=== PATIENT | male | born 1945 | race Caucasian/White ===

== ENCOUNTER 2019-10-22 09:54 | Outpatient (CLI) | payer OTHER, SELFPAY ==
--- NOTE | ~2019-10-22 | XR_ITS ---
EXAMINATION: XR chest 2V EXAM DATE: 10/22/2019 10:14 INDICATION: Cough. TECHNIQUE: Frontal and lateral projections of the chest obtained and reviewed. There is no prior sary dy for comparison. FINDINGS: Left upper lobe granuloma. The lungs are otherwise clear. There are no pleural effusions. The cardiomediastinal silhouette is within normal limits. There is no pneumothorax suspected. Mil d lower thoracic spondylosis. There are cholecystectomy clips. IMPRESSION: No acute cardiopulmonary findings. Reviewed, dictated and finalized at location A.
== END 2019-10-22 09:55 | disposition home or self-care (01) ==
PROVIDERS: PCP Internal Medicine; Visit Provider Internal Medicine
DX: R05 Cough (principal)
CPT/HCPCS: 71046

== ENCOUNTER 2020-01-27 07:03 | Outpatient (CLI) | payer OTHER, SELFPAY ==
--- NOTE | ~2020-01-27 | MR_ITS ---
EXAMINATION: MR shoulder RT wo con DATE: 01/27/2020 08:32 INDICATION: Right shoulder pain TECHNIQUE: Magnetic resonance imaging (MRI) of the right shoulder was performed without intravenous c ontrast. Sequences included axial PD-weighted FS FSE, coronal oblique PD-weighted FS FSE, coronal obl ique T2-weighted FS FSE, sagittal PD-weighted FS FSE, and sagittal T1-weighted SE. COMPARISON: Right shoulder radiographs dated 01/15/2020 FINDINGS: Coracoacromial arch: The acromion undersurface is curved in morphology (type II). The coracoacromial ligament is normal. M ild acromioclavicular osteoarthritis. Rotator cuff: Moderate tendinopathy of the subscapularis, supraspinatus and infraspinatus tendons. There is bursal sided fraying and small poorly demarcated shallow bursal sided tear along the superior facet footplat e of the supraspinatus tendon. No discrete articular sided tear. The teres minor tendon is normal. No rmal rotator cuff muscle bulk and signal. Biceps tendon, glenoid labrum and glenohumeral cartilage: Long head of the biceps tendon is normal. Glenoid labrum is normal. Cartilage loss with irregular cho ndral surface and with underlying subarticular cystic change at the posterior glenoid. There is a sma ll tear at the base of the 10:30 to 11:00 position of the posterior superior glenoid labrum. Fluid: Physiologic amount of fluid in the glenohumeral joint and biceps tendon sheath. No loose osteochondra l bodies. Moderate amount of fluid in the subacromial/subdeltoid bursa consistent with mild to modera te bursitis. Bones: Bone alignment is normal. No fracture or pathologic marrow replacing process. Mild hypertrophic and c ystic changes along the rotator cuff footplate of the greater tuberosity likely related to chronic ro tator cuff disease. IMPRESSION: 1. Moderate subscapularis, supraspinatus and infraspinatus tendinopathy with bursal sided fraying and poorly defined small shallow bursal sided tear at the greater tuberosity footplate of the supraspina tus tendon. 2. Mild glenohumeral osteoarthritis with small tear at the posterior superior glenoid and small regio n of high-grade chondromalacia in the posterior glenoid. 3. Mild to moderate subacromial/subdeltoid bursitis. Reviewed, dictated and finalized at location A. IMPRESSION: 1. Moderate subscapularis, supraspinatus and infraspinatus tendinopathy with bu rsal sided fraying and poorly defined small shallow bursal sided tear at the gr eater tuberosity footplate of the supraspinatus tendon. 2. Mild glenohumeral osteoarthritis with small tear at the posterior superior g lenoid and small region of high-grade chondromalacia in the posterior glenoid. 3. Mild to moderate subacromial/subdeltoid bursitis.
== END 2020-01-27 07:04 | disposition home or self-care (01) ==
PROVIDERS: PCP Internal Medicine; Visit Provider Orthopaedic Surgery
DX: M75.101 Unspecified rotator cuff tear or rupture of right shoulder, not specified as traumatic (principal); M19.011 Primary osteoarthritis, right shoulder; M94.211 Chondromalacia, right shoulder; M75.81 Other shoulder lesions, right shoulder; M75.51 Bursitis of right shoulder
CPT/HCPCS: 73221

== ENCOUNTER 2020-07-17 06:46 | Outpatient (NON) | payer OTHER, SELFPAY ==
[2020-07-18 00:44] LABS: SARS-CoV-2 RNA PCR Negative
== END 2020-07-17 06:47 ==
LOC: ANHCOVIDDT 06:57
PROVIDERS: PCP Internal Medicine; Visit Provider Internal Medicine
DX: R68.89 Other general symptoms and signs (principal); Z20.828 Contact with and (suspected) exposure to other viral communicable diseases
CPT/HCPCS: 87635; C9803; U0003

== ENCOUNTER 2020-12-11 11:58 | Emergency (ER) | payer OTHER, SELFPAY ==
[2020-12-11 12:02] VITALS: BP 133/75; PULSE 67; RESP 20; TEMP 36.9; O2SAT 97
--- NOTE | 2020-12-11 12:30 | ED.EYEPROB ---
HPI - Eye Problem General Chief complaint: Eye Problems Stated complaint: EYE REDNESS Source: patient Mode of arrival: ambulatory Limitations: no limitations History of Present Illness HPI Narrative: 75 year old male presents to urgent care with complaints of redness and tearing to his left eye since yesterday. Patient reports he also has noted mild matting to his left eye as well as a bump to his upper eyelid. Patient does wear glasses. Patient denies purulent drainage, visual disturbances, fever, bodies, chills, nausea, vomiting or diarrhea. MD chief complaint: eye redness Onset (ago): day(s) (1) Eye Symptoms: redness Mechanism: none Associated symptoms: none Related Data Home Medications Medication Instructions Recorded Confirmed hydrocodone 5 mg-acetaminophen 325 1 tablet PO Q6H PRN 08/29/19 12/11/20 mg tablet omeprazole 20 mg capsule,delayed 20 mg PO BID 08/29/19 12/11/20 release sertraline 100 mg tablet 100 mg PO DAILY 08/29/19 12/11/20 buspirone 10 mg tablet 10 mg PO TID 10/14/19 12/11/20 cyanocobalamin (vitamin B-12) 1,000 mcg SUB-Q MONTHLY ml 05/03/20 12/11/20 1,000 mcg/mL injection solution trazodone 100 mg PO DAILY 12/11/20 12/11/20 Allergies Allergy/AdvReac Type Severity Reaction Status Date / Time No Known Allergies Allergy Verified 12/11/20 12:25 Review of Systems Constitutional: Constitutional: Denies chills, Denies fatigue, Denies fever(s) and Denies weakness Eyes: Comments: left eye redness and tearing; eliud of swelling to left upper eyelid ENT: Denies dysphagia, Denies dizziness, Denies epistaxis and Denies sore throat Respiratory: Respiratory: Denies cough, Denies dyspnea and Denies wheezing Gastrointestinal: Gastrointestinal: Denies abdominal pain, Denies diarrhea, Denies nausea and Denies vomiting Neurologic: Denies dizziness PMFSH Surgical History Surgical History History of total right knee replacement Presence of left artificial knee joint Family History Family History Mother Family history of rheumatoid arthritis Sibling Family history of malignant neoplasm Other Family history of arthritis Social History Social History Smoking packs per day: 1 Smoking cigarettes per day: 20.0 Years smoked: 20 Smoking pack-years: 20.00 Smoking status: Former smoker Tobacco type: cigarettes Smoking end date: 08/06/89 Alcohol intake: never Spiritual care concerns: No Comments At time of signature, I agree with nursing past medical, surgical, social and family history. There is no relevant family history pertinent to the presenting complaint. Exam Const: General: no acute distress and alert Nutritional Appearance: well nourished Orientation/consciousness: patient oriented x3 HENMT: Head: normal to inspection Throat: posterior oropharynx normal and uvula midline Eyes: EOM: EOMs intact bilaterally Direct Ophthalmoscopy: no photophobia Other: Mild injection noted to left conjunctiva. There is a moderate sized stye noted to left upper eyelid. There is no purulent drainage or matting noted Neck: Neck: normal visual inspection Resp: Effort & Inspection: normal respiratory effort, not labored and not tachypneic Auscultation: clear to auscultation bilaterally Cardio: Rate: regular rate, not bradycardic and not tachycardic Rhythm: regular rhythm Heart sounds: no murmurs Skin: General skin exam: normal color Rashes: no rashes Wounds: no wounds Neuro: General: patient oriented x3 and moves all extremities Speech: normal speech Psych: Appearance: grossly normal Mental Status: mental status grossly normal Affect: normal affect Attitude: cooperative Thought content: Yes Normal thought content present Course Vital Signs Vital signs: Vital Signs Temperature 36.9 C 12/11/20 12:02
== END 2020-12-11 12:47 | disposition home or self-care (01) ==
PROVIDERS: Emergency Provider Nurse Practitioner Family; PCP Internal Medicine
DX: H00.014 Hordeolum externum left upper eyelid (principal); Z87.891 Personal history of nicotine dependence; Z96.653 Presence of artificial knee joint, bilateral; E03.9 Hypothyroidism, unspecified; Z98.41 Cataract extraction status, right eye; G47.30 Sleep apnea, unspecified; Z85.46 Personal history of malignant neoplasm of prostate; Z90.79 Acquired absence of other genital organ(s)
CPT/HCPCS: 99213; G0463

== ENCOUNTER 2021-04-12 11:37 | Outpatient (CLI) | payer OTHER, SELFPAY ==
--- NOTE | ~2021-04-12 | XR_ITS ---
EXAMINATION: XR hand RT min 3V INDICATION: Right hand pain TECHNIQUE: Four views of the right hand are obtained. COMPARISON: None available FINDINGS: There is no fracture. There is moderate osteoarthritis of the wrist and mild osteoarthritis of multiple interphalangeal joints and metacarpophalangeal joints. The soft tissues are unremarkable . IMPRESSION: 1. Polyarticular osteoarthritis without acute osseous abnormality. Reviewed, dictated and finalized at location B.
== END 2021-04-12 11:38 | disposition home or self-care (01) ==
PROVIDERS: PCP Internal Medicine; Visit Provider Internal Medicine
DX: S69.90XA Unspecified injury of unspecified wrist, hand and finger(s), initial encounter (principal); M19.041 Primary osteoarthritis, right hand
CPT/HCPCS: 73130

== ENCOUNTER 2021-10-26 13:00 | Emergency (ER) | payer MEDICARE, SELFPAY ==
[2021-10-26] VITALS (11 sets, daily range): BP systolic 139–144; BP diastolic 77–85; PULSE 58–65; RESP 15–23; TEMP 36.8; O2SAT 95–98
--- NOTE | ~2021-10-26 | XR_ITS ---
EXAMINATION: XR chest 2V DATE: 10/26/2021 13:15 INDICATION: Irregular heart rate TECHNIQUE: AP and lateral views of the chest are obtained. COMPARISON: 10/22/2019 FINDINGS: The lungs are free of acute opacities. There is no pleural effusion or pneumothorax. The ca rdiomediastinal silhouette is normal. There is mild thoracic spondylosis. IMPRESSION: 1. No acute cardiopulmonary abnormality. Reviewed, dictated and finalized at location B.
--- NOTE | 2021-10-26 13:04 | ECG_ITS ---
Measurements Intervals [place] Rate: 69 P: -10 LA: 153 QRS: -7 QRSD: 97 T: 40 QT: 406 QTc: 438 Interpretive Statements SINUS RHYTHM WITH FREQUENT VENTRICULAR PREMATURE COMPLEXES IN A BIGEMINAL PATTERN NONSPECIFIC T-WAVE ABNORMALITY ABNORMAL ECG COMPARED TO ECG 10/28/2018 13:21:15 T-WAVE ABNORMALITY NOW PRESENT Electronically Signed On 10-26-2021 14:23:03 CDT by Tj Rick M.D.
--- NOTE | 2021-10-26 13:30 | ED.GENADULT ---
HPI - General Adult General Chief complaint: Arrhythmia/Palpitations Stated complaint: abnormal EKG Time Seen by Provider: 10/26/21 13:13 Source: patient Limitations: no limitations History of Present Illness HPI narrative: Patient is 76 years old white male went to see his [place] family physician today for regular check. 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 Patient changed doctors, went to another family physician who referred him to the emergency room for further evaluation. Again patient was asymptomatic before and asymptomatic on arrival to the emergency room. Patient is telling me that he was told that he have skipped beats. He does not feel it. Again he denies any fever, chills, nausea, vomiting, chest pain, shortness of breath, back pain, abdominal pain or palpitation. Related Data Home Medications Medication Instructions Recorded Confirmed hydrocodone 5 mg-acetaminophen 325 1 tablet PO Q6H PRN 08/29/19 10/13/21 mg tablet omeprazole 20 mg capsule,delayed 20 mg PO BID 08/29/19 10/13/21 release sertraline 100 mg tablet 100 mg PO DAILY 08/29/19 10/13/21 buspirone 10 mg tablet 10 mg PO TID 10/14/19 10/13/21 cyanocobalamin (vitamin B-12) 1,000 mcg SUB-Q MONTHLY ml 05/03/20 10/13/21 1,000 mcg/mL injection solution trazodone 100 mg PO DAILY 12/11/20 10/13/21 Allergies Allergy/AdvReac Type Severity Reaction Status Date / Time No Known Allergies Allergy Verified 10/26/21 13:02 Review of Systems Review of Systems: CONSTITUTIONAL: Denies fever, chills, or sweats. EYES: Denies visual changes, redness, or discharge. ENT: Denies rhinorrhea, congestion, sore throat, or otalgia. CARDIOVASCULAR: Denies chest pain, palpitations, or edema. RESPIRATORY: Denies cough or dyspnea. GASTROINTESTINAL: Denies abdominal pain, nausea, vomiting, or diarrhea. GENITOURINARY: Denies dysuria or hematuria. SKIN: Denies rash or itching. MUSCULOSKELETAL: Denies back pain, joint pain, or myalgia. NEUROLOGIC: Denies headache, numbness, or weakness. PSYCHIATRIC: Denies anxiety or depression. PMFSH Surgical History Surgical History History of total right knee replacement Presence of left artificial knee joint Family History Family History Mother Family history of rheumatoid arthritis Sibling Family history of malignant neoplasm Other Family history of arthritis Social History Social History Smoking packs per day: 1 Smoking cigarettes per day: 20.0 Years smoked: 20 Smoking pack-years: 20.00 Smoking status: Former smoker Tobacco type: cigarettes Smoking end date: 08/06/99 Substance use: never Gender identity (if verbalized by the patient): Male Spiritual care concerns: No Exam Narrative: General appearance: Well-developed, well-nourished Skin: Normal color Head: Normocephalic, nontraumatic Eyes: Clear conjunctiva ENT: Oropharynx normal, ears normal, nose normal Neck: Supple, nontender Chest and respiratory: Airway patent, no respiratory distress, no accessory muscle use Heart: Regular rate/rhythm Abdomen: Soft, nontender, no organomegaly, quiet bowel sounds Vascular: Normal peripheral pulses, normal capillary refill. Musculoskeletal: Normal range of motion, nontender back Neurologic: Alert and oriented ?3, ENROLLMENT COUNSELOR is normal as tested, no gross motor deficit Course Course Emergency Course: Stable Vital Signs Vital signs: Vital Signs Temperature 36.8 C 10/26/21 12:59 [place]
[2021-10-26 13:49] LABS: Basophils Percent Auto 0.6 % (0.2-1.2); Eosinophils Absolute Auto 0.2 K/mm3 (0-0.3); Eosinophils Percent Auto 2.7 % (0-4.4); Hematocrit 48.2 % (42.0-52.0); Hemoglobin 16.6 g/dL (14.0-18.0); Immature Granulocyte Absolute 0.02 K/mm3 (0.00-0.031); Immature Granulocyte Percent A 0.3 % (0-0.5); Lymphocytes Absolute Auto 2.23 K/mm3 (0.9-3.2); Lymphocytes Percent Auto 31.2 % (18.3-44.2); Mean Corpuscular HGB Conc 34.4 g/dl (32-36); Mean Corpuscular Hemoglobin 31.6 pg (26-34); Mean Corpuscular Volume 91.8 fl (80-100); Mean Platelet Volume 10.8 fl (7.4-10.4); Monocytes Absolute Auto 0.7 K/mm3 (0.1-0.6); Monocytes Percent Auto 9.5 % (2.6-8.5); Neutrophils Percent Auto 55.7 % (45.5-73.1); Platelet Count Result 190 k/mm3 (150-375); Red Blood Count 5.25 M/mm3 (4.6-6.20); Red Cell Distribution Width 14.2 % (11.5-14.5); White Blood Count 7.2 K/mm3 (4.5-10.0)
[2021-10-26 14:06] LABS: Alanine Aminotransferase 18 U/L (4-50); Albumin Level 3.7 g/dL (3.5-5.1); Alkaline Phosphatase 64 U/L (38-126); Anion Gap 5 mmol/L (8-16); Aspartate Amino Transferase 30 U/L (17-59); Bilirubin,Total 0.7 mg/dL (0.2-1.3); Blood Urea Nitrogen 18 mg/dL (9-20); Calcium 8.4 mg/dL (8.4-10.2); Carbon Dioxide 24 mmol/L (22-30); Chloride 106 mmol/L (98-107); Estimated CRCL calculation 69 ml/min; Estimated Glomerular Filt Rate > 60; Glucose 95 mg/dL (65-110); Lipase 160 U/L (23-300); Potassium 4.3 mmol/L (3.4-5.0); Sodium 135 mmol/L (137-145)
[2021-10-26 14:08] LABS: INR 1.1; Prothrombin Time 13.3 Seconds (11.1-14.7)
[2021-10-26 14:09] LABS: Partial Thromboplastin Time 26.9 SECONDS (22.3-36.8)
[2021-10-26 14:18] LABS: Troponin I < 0.012 ng/mL (0.000-0.034)
--- NOTE | 2021-10-26 14:23 | ECG_ITS ---
Measurements Intervals [place] Rate: 56 P: -1 MD: 155 QRS: -8 QRSD: 110 T: 39 QT: 433 QTc: 421 Interpretive Statements SINUS BRADYCARDIA WITH OCCASIONAL VENTRICULAR PREMATURE COMPLEXES ABNORMAL ECG COMPARED TO ECG 10/26/2021 13:06:08 SINUS BRADYCARDIA NOW PRESENT Electronically Signed On 10-26-2021 17:56:58 CDT by Tj Rick M.D.
== END 2021-10-26 15:33 | disposition home or self-care (01) ==
PROVIDERS: Emergency Provider Emergency Medicine; PCP Internal Medicine
DX: I49.3 Ventricular premature depolarization (principal); R94.31 Abnormal electrocardiogram [ECG] [EKG]; Z87.891 Personal history of nicotine dependence; Z96.653 Presence of artificial knee joint, bilateral
CPT/HCPCS: 36415; 71046; 80053; 83690; 84484; 85025; 85610; 85730; 93005; 99284

== ENCOUNTER 2021-11-15 07:37 | Outpatient (CLI) | payer MEDICARE, SELFPAY ==
--- NOTE | ~2021-11-15 | US_ITS ---
EXAMINATION: US aorta [facility] scrn DATE: 11/15/2021 09:20 INDICATION: Abdominal aortic aneurysm screening, hypertension, prior tobacco use TECHNIQUE: Grayscale, color Doppler, and pulsed Doppler images of the aorta and common iliac arteries were obtained. COMPARISON: None. FINDINGS: Maximum vascular dimensions are as follows: Proximal aorta: 2.1 cm Mid aorta: 2.6 cm Distal aorta: 5.8 cm Right common iliac artery: 1.5 cm Left common iliac artery: 1.6 cm There is a 5.8 x 4.9 cm fusiform infrarenal abdominal aortic aneurysm. IMPRESSION: 1. Fusiform infrarenal abdominal aortic aneurysm measuring up to 5.8 cm. Vascular surgical evaluation is recommended. Reviewed, dictated and finalized at location A. IMPRESSION: 1. Fusiform infrarenal abdominal aortic aneurysm measuring up to 5.8 cm. Vascul ar surgical evaluation is recommended.
--- NOTE | ~2021-11-15 | US_ITS ---
EXAMINATION: US thyroid EXAM DATE: 11/15/2021 09:15 INDICATION: Hypothyroidism. TECHNIQUE: Multiple grayscale and Doppler images of the thyroid were obtained (by a technologist who performed the scan) and subsequently reviewed. Individual nodules and recommendations may be reporte d in accordance with TI-RADS system as designated by the 2017 ACR White Paper TI-RADS committee. The re is no prior study for comparison. FINDINGS: The right thyroid lobe measures 4.8 x 1.7 x 1.3 cm, the left measuring 3.2 x 1.3 x 1.5 cm, within nor mal size limits. No focal nodule is identified. IMPRESSION: 1. Unremarkable thyroid ultrasound exam. Reviewed, dictated and finalized at location B.
== END 2021-11-15 07:38 | disposition home or self-care (01) ==
PROVIDERS: PCP Internal Medicine; Visit Provider Internal Medicine
DX: Z13.6 Encounter for screening for cardiovascular disorders (principal); Z87.891 Personal history of nicotine dependence; E03.9 Hypothyroidism, unspecified
CPT/HCPCS: 76536; 76706

== ENCOUNTER 2022-06-26 10:58 | Outpatient (CLI) | payer MEDICARE, SELFPAY ==
--- NOTE | ~2022-06-26 | XR_ITS ---
EXAMINATION: XR chest 2V 06/26/2022 11:24 INDICATION: Cough PROCEDURE: 2 view chest COMPARISON: 10/26/2021 FINDINGS: The lungs are clear. The cardiomediastinal silhouette is within normal limits. There are no pleural effusions. There is no pneumothorax suspected. IMPRESSION: 1: NO ACUTE CARDIOPULMONARY DISEASE. Reviewed, dictated and finalized at location B. ER MACHINE OPERATOR
== END 2022-06-26 10:59 | disposition home or self-care (01) ==
LOC: ANHIMG 11:08
PROVIDERS: PCP Internal Medicine; Visit Provider Internal Medicine
DX: R05.9 Cough, unspecified (principal)
CPT/HCPCS: 71046

== ENCOUNTER 2022-07-04 09:36 | Emergency (ER) | payer MEDICARE, SELFPAY ==
[2022-07-04 09:37] VITALS: BP 134/89; PULSE 59; RESP 18; TEMP 36.3; O2SAT 97
--- NOTE | 2022-07-04 09:42 | ECG_ITS ---
Measurements Intervals [place] Rate: 56 P: 47 AK: 168 QRS: -11 QRSD: 96 T: 54 QT: 412 QTc: 400 Interpretive Statements SINUS BRADYCARDIA BORDERLINE ECG COMPARED TO ECG 10/26/2021 15:00:05 NO SIGNIFICANT CHANGES Electronically Signed On 07-04-2022 10:20:23 RN LPN CNA by Darrell Ybarra D.O.
--- NOTE | 2022-07-04 10:08 | PC.NURSE ---
per are leaving; have called MD and going to handle it ; advised of risks including , she replied we know that . Advised pt. to stay for treatment; declines because it is going to cost us $3000 . Again advised of risk.
--- NOTE | 2022-07-04 10:17 | PC.NURSE ---
back at desk; reports they were told to stay.
[2022-07-04 12:32] VITALS: BP 126/78; PULSE 59; TEMP 36.3; O2SAT 98
== END 2022-07-04 12:40 | disposition left against medical advice (07) ==
LOC: ANHED 12:36
PROVIDERS: PCP Internal Medicine
DX: R00.1 Bradycardia, unspecified (principal)
CPT/HCPCS: 93005; 99199

== ENCOUNTER 2023-05-04 10:36 | Outpatient (CLI) | payer MEDICARE, SELFPAY ==
--- NOTE | ~2023-05-04 | MR_ITS ---
EXAMINATION: MR lumbar spine wo con DATE: 05/04/2023 11:21 INDICATION: Compression fracture. Low back pain. Leg pain. TECHNIQUE: Magnetic resonance imaging (MRI) of the lumbar spine was performed without intravenous con trast. Sequences included sagittal T2-weighted FSE, sagittal T2-weighted FS FSE, sagittal T1-weighted FSE, and axial T2-weighted FSE. COMPARISON: Lumbar spine MRI 07/19/2004 FINDINGS: There is 4 degrees levocurvature of lumbar spine. There is 5 mm anterolisthesis of L4 on L5 . There is 3 mm retrolisthesis of L5 on S1. T12 is a limbus vertebra. There is mildly decreased disc height at L3-L4 and L4-L5 and severely decreased disc at L5-S1. The distal spinal cord signal intensi ty is normal. The conus medullaris is at L1. Partially visualized is a fusiform aneurysm of infrarena l aorta measuring greater than 5 cm. The following disc levels are specifically discussed: L1-L2: The disc is bulging. There is moderate bilateral facet joint osteoarthritis. There is mild jermaine ateral neural foraminal stenosis. There is no central canal stenosis. L2-L3: The disc is bulging. There is severe bilateral facet joint osteoarthritis. There is mild bilat eral neural foraminal stenosis. There is mild central canal stenosis. L3-L4: The disc is bulging and has an annular fissure. There is severe bilateral facet joint osteoart hritis. There is moderate right and mild left neural foraminal stenosis. There is mild central canal stenosis. L4-L5: The disc is bulging. There is severe bilateral facet joint osteoarthritis. There is mild bilat eral neural foraminal stenosis. There is mild central canal stenosis. There is moderate stenosis of l eft lateral recess. L5-S1: The disc is bulging and has an annular fissure. There is moderate bilateral facet joint osteoa rthritis. There is mild bilateral neural foraminal stenosis. There is mild central canal stenosis. IMPRESSION: 1. Severe lumbar spondylosis. 2. Partially visualized fusiform abdominal aortic aneurysm measuring greater than 5 cm. Surgical cons ultation is recommended if this has not been treated. Reviewed, dictated and finalized at location E. IMPRESSION: 1. Severe lumbar spondylosis. 2. Partially visualized fusiform abdominal aortic aneurysm measuring greater th an 5 cm. Surgical consultation is recommended if this has not been treated.
== END 2023-05-04 10:37 ==
LOC: GOSHIMG 10:39
PROVIDERS: PCP Internal Medicine; Visit Provider Nurse Practitioner Adult Health
DX: M43.06 Spondylolysis, lumbar region (principal); S22.080A Wedge compression fracture of T11-T12 vertebra, initial encounter for closed fracture
CPT/HCPCS: 72148

== ENCOUNTER 2024-10-21 14:33 | Outpatient (CLI) | payer MEDICARE, SELFPAY ==
--- NOTE | ~2024-10-21 | US_ITS ---
EXAMINATION: US thyroid DATE: 10/21/2024 15:10 INDICATION: Hypothyroidism TECHNIQUE: Multiple ultrasound images of the thyroid were obtained. COMPARISON: None. FINDINGS: The right thyroid lobe measures 3.6 x 1.4 x 1.1 cm. The left thyroid lobe measures 3.7 x 1.9 x 1.0 c m. No discrete nodules identified. There is normal echotexture, echogenicity and vascular flow throu ghout the thyroid gland. IMPRESSION: 1. Normal thyroid ultrasound. Reviewed, dictated and finalized at location A.
--- NOTE | ~2024-10-21 | CT_ITS ---
CLINICAL INDICATION: Cough COMPARISON: None. Reference is made to a CT examination of the abdomen dated 09/20/2006 TECHNIQUE: Multiple contiguous axial images of the chest was performed without the administration of intravenous contrast. This CT examination was performed utilizing dose reduction techniques. DLP: 645 mGy-cm FINDINGS/OBSERVATIONS: LUNG: The lungs are clear. HEART: The heart is of normal size, without pericardial effusion. MEDIASTINUM: No pathologically enlarged or morphologically suspicious lymph nodes are identified within the medias tinum, bilateral axilla, within the soft tissues of the anterior chest wall. SOFT TISSUES OF THE CHEST: Unremarkable. BONES OF THE CHEST: No acute fracture. No lytic or blastic lesions are identified. There are bridging endplate osteophytes at multiple levels in the spine, consistent with diffuse idio pathic skeletal hyperostosis (DISH). UPPER ABDOMEN: Findings consistent with a gastric sleeve. The gallbladder is surgically absent. Interval development of multiple morphologically suspicious and no pathologically enlarged lymph node s within the mesentery of the upper abdomen for which dedicated contrast-enhanced CT examination of t he abdomen and pelvis is recommended. The largest lymph node is within the left upper quadrant measuring 16.5 mm in short axis dimension. IMPRESSION: No acute or subacute pathology is identified within the chest. Interval development (when compared with previous examination performed in 2006) of multiple morpholo gically suspicious and pathologically enlarged lymph nodes within the mesentery of the upper abdomen for which contrast enhanced CT examination of the abdomen and pelvis is recommended. Reviewed, dictated and finalized at location A. IMPRESSION: No acute or subacute pathology is identified within the chest. Interval development (when compared with previous examination performed in 2006 ) of multiple morphologically suspicious and pathologically enlarged lymph node s within the mesentery of the upper abdomen for which contrast enhanced CT exam ination of the abdomen and pelvis is recommended.
--- OUTSIDE RECORDS SUMMARY | 2024-10-21 16:23 | XMS_ITS | Clinical Summary ---
Author Organization [facility] Facility Address [address] [address] Care Team Providers Care Liquor Blender Name Role Phone Tobias Jensen MD Primary Care Provider [phone] Encounters Date Type Department Care Team Description 10/08/2024 Documentation Only [facility], [address] [id number] Alek Dee MD 08/01/2024 Documentation Only [address] [id number] Alek Dee MD from Last 3 Months Social History Tobacco Use Types Packs/Day Years Used Date Smoking Tobacco: Never Assessed Sex and Gender Information Value Date Recorded Sex Assigned at Not on file Legal Sex Male 3:23 PM EST Gender Identity Not on file Sexual Orientation Not on file Plan of Treatment Upcoming Encounters Date Type Department Care Team (Late st Contact Info) Description 11/11/2024 1:30 PM CDT Office Visit [facility] [address] [place] [id number] Bharath Smiley DO [address] [place] [address] [address] [place] [address] Health Maintenance Due Date Last Done Comments Influenza Vaccine (#1) 2024 3, 07/06/2022, 05/19/2019, Additional history exists Pneumococcal Vaccine: 65+ Years Completed 09/26/2021, 02/24/2021, 08/18/2015, Additional history exists Hepatitis B Vaccine Aged Out No longe r eligible based on patient's age to complete this topic Insurance [facility] MEDICARE Care Teams Liquor Blender Relationship Specialty Start Date End Date Tobias Jensne MD [address], [address] [place] [address] PCP - General Internal Medicine 07/24/23
--- OUTSIDE RECORDS SUMMARY | 2024-10-21 16:24 | XMS_ITS | Clinical Summary ---
Author Organization [facility] Address [address] [place] [address] Care Team Providers Care Safekeeping Clerk Name Role Phone Unavailable Primary Care Provider Unavailabl e Source Comments [facility],non-owned Affiliates and Associated Physician Practices is amultiple site organization consisting of ambulatory clinics and hospital sitesin [place], [place], [place] and [place]. This disclosure is being madepursuant to the Care Everywhere program and may not contain all information available regarding this patient. Last updated 18.[facility] [employer] Social History Tobacco Use Types Packs/Day Years Used Date Smoking Tobacco: Never Assessed Sex and Gender Information Value Date Recorded Sex Assigned at Not on file Gender Identity Not on file Sexual Orientation Not on file Plan of Treatment Health Maintenance Due Date Last Done Comments HEPATITIS C SCREENING 03/18/1963 DTAP/TDAP/TD VACCINES (1 - Tdap) 1965 PNEUMOCOCCAL VACCINE 50+ (1 of 1 - PCV) 1996 ZOSTER VACCINE (1 of 2) 1996 Respiratory Syncytial Virus (RSV) Vaccine Pt: or over 60 yrs (1 - 1-dose 75+ series) 2021 COVID-19 VACCINE ( - 2023-2 5 season) 2024 INFLUENZA VACCINE (#1) 2024 DEPRESSION SCREENING 08/06/2024 MEDICARE AWV CALENDAR YEAR 2024 HEPATITIS B VACCINE Aged Out No longe r eligible based on patient's age to complete this topic HIB VACCINE Aged Out No longer eligi ble based on patient's age to complete this topic HPV VACCINE Aged Out No longer eligi ble based on patient's age to complete this topic MENINGOCOCCAL (Group B) VACC INE SHARED DECISION-MAKING Aged Out No longer eligibl e based on patient's age to complete this topic MENINGOCOCCAL GROUPS A/C/Y/W VACCINE Aged Out No longer eligible b ased on patient's age to complete this topic
--- OUTSIDE RECORDS SUMMARY | 2024-10-21 16:24 | XMS_ITS | Data Portability ---
Author Organization [place] - [facility] [employer], Main Office Address [address] [place] [address] Care Team Providers Care Non Destructive Evaluation Technician Name Role Phone TOBIAS JENSEN Primary Care Provider FATOUMATA VILLAVICENCIO Residential Advisor Assessment Encounter Date Assessment Date Assessment LastModified by Organization Details LastModified Time 07/18/2023 07/18/2023 11/06/2022: PSA <0.064 TSH 0.152L, FT4 1.92 CMP: BUN 26 LDL 104 VIT D 29.2 CBC: WNL 03/09/2023: VIT D 25.4 BUN 24 07/16/2023: BUN/Cr 24/1.35, GFR 51 Not available 07/18/2023 11:11:55 11/14/2023 11/14/2023 11/06/2022: PSA <0.064 TSH 0.152L, FT4 1.92 CMP: BUN 26 LDL 104 VIT D 29.2 CBC: WNL 03/09/2023: VIT D 25.4 BUN 24 07/16/2023: BUN/Cr 24/1.35, GFR 51 11/13/2023: VIT D 29.7 BUN 24, Cr 1.25, GFR 56 Not available 11/14/2023 16:31:37 04/21/2024 04/21/2024 11/06/2022: PSA <0.064 TSH 0.152L, FT4 1.92 CMP: BUN 26 LDL 104 VIT D 29.2 CBC: WNL 03/09/2023: VIT D 25.4 BUN 24 07/16/2023: BUN/Cr 24/1.35, GFR 51 11/13/2023: VIT D 29.7 BUN 24, Cr 1.25, GFR 56 Addendum: 04/21/2024: [facility] labs reported, case sent PSA <0.064 TSH 7.700H, 1.38 BUN 28, Cr 1.24, GFR 56 Not available 04/21/2024 14:51:13 07/23/2024 07/23/2024 11/06/2022: PSA <0.064 TSH 0.152L, FT4 1.92 CMP: BUN 26 LDL 104 VIT D 29.2 CBC: WNL 03/09/2023: VIT D 25.4 BUN 24 07/16/2023: BUN/Cr 24/1.35, GFR 51 11/13/2023: VIT D 29.7 BUN 24, Cr 1.25, GFR 56 Addendum: 04/21/2024: [facility] labs reported, case sent PSA <0.064 TSH 7.700H, 1.38 BUN 28, Cr 1.24, GFR 56 Not available 07/23/2024 16:29:32 09/10/2024 09/10/2024 11/06/2022: PSA <0.064 TSH 0.152L, FT4 1.92 CMP: BUN 26 LDL 104 VIT D 29.2 CBC: WNL 03/09/2023: VIT D 25.4 BUN 24 07/16/2023: BUN/Cr 24/1.35, GFR 51 11/13/2023: VIT D 29.7 BUN 24, Cr 1.25, GFR 56 Addendum: 04/21/2024: [facility] labs reported, case sent PSA <0.064 TSH 7.700H, 1.38 BUN 28, Cr 1.24, GFR 56 07/22/2024: LDL 105 Not available 09/10/2024 10:27:28 Plan of Treatment Reminders Order Date Submit Date Provider Last Modified By Organization Details Last Modified Time Details Appointments Follow Up 15 2024 10:30A Taisha daniels MD Not available Not available Not available Lab lipid panel, serum 2024 025 [facility], [address] [facility], [address], [place], [address], 09/10/2024 09:48:01 CMP, serum or plasma 2024 025 [facility], [address] [place] [address], [place], [address], 09/10/2024 09:48:02 CBC w/ auto diff 2024 025 [facility], [address] [place] [address], [place], [address], 09/10/2024 09:48:03 TSH, serum or plasma 2024 025 [facility], [address] [place] [address], [place], [address], 09/10/2024 09:48:03 T4, free, serum 2024 025 [facility], [address] [place] [address], [place], [address], 09/10/2024 09:48:03 vitamin D, 25-hydrox y, total, serum 2024 025 [facility], [address] [place] [address], [place], [address], 09/10/2024 09:48:02 vitamin B12 + folate, serum or blood 2024 025 [facility], [address] [place] [address], [place], [address], 09/10/2024 09:48:02 lipid panel, serum 2023 024 [email or web address], [address] [place] [address], [place], [address], 07/24/2024 12:14:14 CMP, serum or plasma 2023 024 [email or web address], [address] [place] [address], [place], [address], 07/24/2024 12:14:15 CBC w/ auto diff 2023 024 [email or web address], [address] [place] [address] 2, [place], [address], 07/24/2024 12:14:16 TSH, serum or plasma 2023 024 [email or web address], [address] [place] [address], [place], [address], 07/24/2024 12:14:17 T4, free, serum 2023 024 [email or web address], [address] [place] [address] 2, [place], [address], 07/24/2024 12:14:18 vitamin D, 25-hydrox y, total, serum 2023 024 [email or web address], [address] [place] [address], [place], [address], 07/24/2024 12:14:12 vitamin B12 + folate, serum or blood 2023 024 [email or web address], [address] [place] [address], [place], [address], 07/24/2024 12:14:13 lipid panel, serum 2023 024 [facility] Not available 04/21/2024 13:18:18 CMP, serum or plasma 2023 024 [facility] Not available 04/21/2024 13:18:12 CBC w/ auto diff 2023 024 [facility] Not available 04/21/2024 12:55:25 TSH, serum or plasma 2023 024 [facility] Not available 04/21/2024 13:55:06 T4, free, serum 2023 024 [facility] Not available 04/21/2024 13:32:58 vitamin D, 25-hydrox y, total, serum 2023 024 [email or web address] Not available 10/21/2024 11:13:11 vitamin B12 + folate, serum or blood 2023 024 [email or web address] Not available 10/21/2024 11:13:11 lipid panel, serum 2023 024 [email or web address] Not available 05/13/2024 08:40:04 CMP, serum or plasma 2023 024 Not available 05/13/2024 08:40:04 CBC w/ auto diff 2023 024 [email or web address] Not available 05/13/2024 08:40:04 TSH, serum or plasma 2023 024 [email or web address] Not available 05/13/2024 08:40:04 T4, free, serum 2023 024 Not available 05/13/2024 08:40:04 vitamin D, 25-hydrox y, total, serum 2023 024 [email or web address] Not available 05/13/2024 08:40:03 vitamin B12 + folate, serum or blood 2023 024 Not available 05/13/2024 08:40:04 lipid panel, serum 2022 023 [facility] Not available 11/13/2023 17:19:34 CMP, serum or plasma 2022 023 [facility] Not available 11/13/2023 17:19:39 CBC w/ auto diff 2022 023 [facility] Not available 11/13/2023 13:47:22 TSH, serum or plasma 2022 023 [facility] Not available 11/13/2023 17:50:58 T4, free, serum 2022 023 [facility] Not available 11/13/2023 17:30:58 vitamin D, 25-hydrox y, total, serum 2022 023 [email or web address] Not available 01/16/2024 08:50:41 vitamin B12 + folate, serum or blood 2022 023 [email or web address] Not available 01/16/2024 08:50:[address] referral - Please call patient to schedule an appointme nt. Thank you. 2024 025 MERVIN Ruiz MD, [address] [facility], [address], [place], [address], 10/06/2024 18:39:52 pulmonolo gist referral - Please call patient to schedule an appointme nt. Thank you. 2024 025 [email or web address] Sanya Adames MD, [address] [place], [address], 10/06/2024 18:03:03 nephrolog ist referral - Please call patient to schedule an appointme nt. Thank you. 2024 025 [place], [address], [address], 10/06/2024 18:25:14 cardiolog ist referral - Please call patient to schedule an appointme nt. Thank you. 2024 025 MERVIN Mejia MD, [address], [place], [address], 10/06/2024 18:33:40 hematolog ist referral - Please call patient to schedule an appointme nt. Thank you. 2024 025 MERVIN Stovall DO, [address] [place], [address], 10/06/2024 19:07:06 pulmonolo gist referral 2023 024 [email or web address] Sanya Adames MD, [address] [place], [address], 07/24/2024 16:18:57 psychiatr ist referral 2023 024 [email or web address] Shan Ma MD, [address], [address], [place], [address], 07/24/2024 16:31:53 nephrolog ist referral - Please call patient to schedule. 2023 024 [place], [address], [address], [place], [address], 10/03/2024 09:55:00 cardiolog ist referral 2023 024 [email or web address] Fatoumata Villavicencio, [address], [address], [place], [address], 07/24/2024 16:17:26 hematolog ist referral - Please call patient to schedule. 2023 024 rosetta Stovall DO, [address] [place], [address], 10/03/2024 09:54:30 pulmonolo gist referral 2023 024 [email or web address] 2 Sanya Adames MD, [address] [place], [address], 10/20/2024 08:34:16 psychiatr ist referral 2023 024 [email or web address] 2 Shan Ma MD, [address], [address], [place], [address], 10/20/2024 08:34:16 nephrolog ist referral 2023 024 [email or web address] [place], [address], [address], [place], [address], 07/24/2024 16:32:39 cardiolog ist referral 2023 024 2 Fatoumata Villavicencio, [address], [address], [place], [address], 10/20/2024 08:34:15 hematolog ist referral 2023 024 [email or web address] Edis Roman MD, [address] [facility] [address], [address], [place], [address], 07/24/2024 16:32:22 pulmonolo gist referral 2023 024 [email or web address] Sanya Adames MD, [address] [place], [address], 05/13/2024 08:41:13 psychiatr ist referral 2023 024 [email or web address] Shan Ma MD, [address] [facility] [address], [place], [address], 05/13/2024 08:41:53 nephrolog ist referral 2023 024 [email or web address] [place], [address], [address], [place], [address], 06/02/2024 09:49:32 cardiolog ist referral 2023 024 [email or web address] Fatoumata Villavicencio, [address], [address], [place], [address], 06/10/2024 09:13:50 hematolog ist referral 2023 024 [email or web address] Edis Roman MD, [address] [facility] [address], [address], [place], [address], 05/13/2024 08:42:10 pain managemen t referral 2022 023 [email or web address] Jude Genao, [address], [address], [place], [address], 02/13/2024 09:03:10 pulmonolo gist referral 2022 023 [email or web address] Sanya Adames MD, [address] [place], [address], 02/13/2024 09:03:13 psychiatr ist referral 2022 023 [email or web address] Shan Ma MD, [address], [address], [place], [address], 02/13/2024 09:03:12 nephrolog ist referral 2022 023 [place], [address], [address], [place], [address], 02/13/2024 09:03:14 cardiolog ist referral 2022 023 [email or web address] Mikey Cuellar MD, [address], [address], [place], [address], 02/13/2024 09:02:48 cardiolog ist referral 2022 023 [email or web address] Fatoumata Villavicencio, [address], [address], [place], [address], 08/16/2023 11:30:57 hematolog ist referral 2022 023 [email or web address] Edis Roman MD, [address] [facility], [address], [address], [place], [address], 02/13/2024 09:03:13 Procedures upper endoscopy procedure (EGD) (PROC) - Please call patient to schedule an appointme nt. Thank you. 2024 025 [facility], [address], [address], [place], [address], 10/06/2024 18:37:17 upper endoscopy procedure (EGD) (PROC) - Please call patient to schedule. [address] [facility], [address], [address], [place], [address], 10/09/2024 10:01:32 upper endoscopy procedure (EGD) (PROC) 2023 024 [email or web address] Talamantes MD, [address], [address], [place], [address], 07/24/2024 16:14:16 upper endoscopy procedure (EGD) (PROC) 2023 024 [email or web address] Ap Talamantes MD, [address], [address], [place], [address], 06/10/2024 09:16:29 Surgeries None recorded. Imaging bone density 2024 025 [email or web address] [facility], [address], [place], [address], 09/10/2024 18:45:27 CT, chest, w/o contrast 2024 025 [email or web address] [facility], [address], [place], [address], 09/10/2024 18:44:36 US, thyroid 2024 025 [email or web address] [facility], [address], [place], [address], 09/10/2024 18:45:00 bone density 2023 024 [email or web address] [facility], [address], [place], [address], 07/23/2024 18:10:25 CT, chest, w/o contrast 2023 024 [email or web address] [facility], [address], [place], [address], 07/23/2024 18:09:39 US, thyroid 2023 024 [facility], [address], [place], [address], 07/23/2024 18:10:05 bone density 2023 024 [email or web address] [facility], [address], [place], [address], 10/21/2024 12:58:46 CT, chest, w/o contrast 2023 024 [email or web address] [facility], [address], [place], [address], 10/21/2024 12:58:46 US, thyroid 2023 024 [email or web address] [facility], [address], [place], [address], 10/21/2024 12:58:46 bone density 2023 024 [email or web address] [facility], [address], [place], [address], 05/13/2024 08:40:35 CT, chest, w/o contrast 2023 024 [email or web address] [facility], [address], [place], [address], 05/13/2024 08:40:35 US, thyroid 2023 024 [email or web address] [facility], [address], [place], [address], 05/13/2024 08:40:35 bone density 2022 023 [facility], [address], [place], [address], 02/20/2024 17:03:47 CT, chest, w/o contrast 2022 023 [email or web address] [facility], [address], [place], [address], 02/20/2024 17:03:47 US, thyroid 2022 023 [email or web address] [facility], [address], [place], [address], 02/20/2024 17:03:47 Medication Orders cholecalc iferol (vitamin D3) 1,250 mcg (50,000 unit) capsule 2023 024 [email or web address] [id number], [address], [place], [address], 11/22/2023 17:44:41 Patient TargetsNo targets recorded. Patient Instructions Encounter Date Encounter Id Patient Instructions Last Modified By Organization Details Last Modified Time 04/21/2024 [id number] dementia rating scale-2* [email or web address] Not available 04/21/2024 12:19:52 alcohol misuse* [email or web address] Not available 04/21/2024 12:20:05 depression screening* Not available 04/21/2024 12:20:18 Timed Up and Go test (TUG)* [email or web address] Not available 04/21/2024 12:20:35 multi-dimensiona l health assessment questionnaire* [email or web address] 2 Not available 04/21/2024 14:47:55 advance care planning: care instructions [email or web address] 2 Not available 04/21/2024 14:47:55 advance directiv es: care instructions [email or web address] 2 Not available 04/21/2024 14:47:55 [place] Advance Directives [email or web address] 2 Not available 04/21/2024 14:47:55 Personalized a lth Plan and Screening Recommendations Advance Directives - Do you have one? No Advance Directives - Do we have your advance directive on file in your health record? No, please bring in a copy at your earliest convenience Primary Prevention/Interven tion (prevents or decreases the chance of common diseases from occurring) Smoking Risk: Non Smoker Alcohol Misuse Screening: Negative Weight: Appropriate Overwei ght continue your current weight loss efforts try to lose 5% of your body weight try to lose 10% of your body weight Physical activity: Need more exercise/physical activity decrease sitting time to no more than 5hr/day Nutrition: Good Average Refer to attached handout Heart-Healthy Diet: After Your Visit Fall Risk (screened today): Low Intermediate Refer to attached handout Preventing Falls: After your Visit Vaccines Pneumococcal: Ordered Recommended today Recommended today, but you have declined No further needed Influenza: Your next one in the fall of this year Chronic Disease Risks Stroke: Low Risk Intermediate Risk Heart Attack: Low risk Intermediate Risk Clogging of the Arteries: Low risk Intermediate Risk Diabetes: Low Risk I have no recommendations Secondary Prevention/Interven tion (detects treatable diseases before they may cause symptoms, disability, or ) Prostate Cancer Screening: No PSA screening necessary Colon Cancer Screening: No screening necessary Date Screening Last Performed:Declined Eye Disease Screening: Ordered Recommended today Dementia Risk: Low I have no recommendations Depression Screening: Negative Active diagnosis, Continue current treatment plan [email or web address] Not available 04/21/2024 12:23:47 Reason for Referral Residential Advisor Referral for Ab dominal aortic ectasia Referring Physician: [facility], Encounter Date: 07/18/2023 Pain Management Referral for Low back pain Referring Physician: [facility], Encounter Date: 07/18/2023 Residential Advisor Referral for Es sential hypertension Referring Physician: Fauzia Munguia Medicine, Encounter Date: 07/18/2023 Psychiatrist 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 Referring Physician: Tobias [facility], Encounter Date: 07/18/2023 Referring Physician: Tobias [facility], Encounter Date: 07/18/2023 [place] Estimator Referral for C hronic obstructive pulmonary disease Referring Physician: Tobias [facility], Encounter Date: 07/18/2023 [place] Tender Referral for Ch ronic kidney disease Referring Physician: Tobias [facility], Encounter Date: 07/18/2023 Residential Advisor Referral for Es sential hypertension Referring Physician: Tobias [facility], Encounter Date: 11/14/2023 Psychiatrist 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 Referring Physician: Fauzia Munguia, Encounter Date: 11/14/2023 Referring Physician: Fauzia Munguia Medicine, Encounter Date: 11/14/2023 [place] Estimator Referral for C hronic obstructive pulmonary disease Referring Physician: Fauzia Munguia, Encounter Date: 11/14/2023 Waxer Tender Referral for Ch ronic kidney disease Referring Physician: Fauzia Munguia, Encounter Date: 11/14/2023 Residential Advisor Referral for Es sential hypertension Referring Physician: Fauzia Munguia, Encounter Date: 04/21/2024 Psychiatrist 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 Referring Physician: Fauzia Munguia, Encounter Date: 04/21/2024 Referring Physician: Fauzia Munguia, Encounter Date: 04/21/2024 [place] Estimator Referral for C hronic obstructive pulmonary disease Referring Physician: Fauzia Munguia, Encounter Date: 04/21/2024 Waxer Tender Referral for Ch ronic kidney disease Referring Physician: Fauzia Munguia, Encounter Date: 04/21/2024 Residential Advisor Referral for Es sential hypertension Referring Physician: Fauzia Munguia, Encounter Date: 07/23/2024 Psychiatrist 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 Referring Physician: Tobias [facility], Encounter Date: 07/23/2024 [place] Estimator Referral for C hronic obstructive pulmonary disease Referring Physician: Tobias [facility], Encounter Date: 07/23/2024 Waxer Tender Referral for Ch ronic kidney disease Please call patient to schedule. Referring Physician: Tobias [facility], Encounter Date: 07/23/2024 Residential Advisor Referral for Es sential hypertension Please call patient to schedule an appointment. Thank you. Referring Physician: Tobias [facility], Encounter Date: 09/10/2024 Please call patient to sched ule an appointment. Thank you. Referring Physician: Tobias [facility], Encounter Date: 09/10/2024 [place] Estimator Referral for C hronic obstructive pulmonary disease Please call patient to schedule an appointment. Thank you. Referring Physician: Tobias [facility], Encounter Date: 09/10/2024 Waxer Tender Referral for Ch ronic kidney disease Please call patient to schedule an appointment. Thank you. Referring Physician: Tobias [facility], Encounter Date: 09/10/2024 Neurologist Referral for Cer ebrovascular accident Please call patient to schedule an appointment. Thank you. Referring Physician: Tobias [facility], Encounter Date: 09/10/2024 Results Created Date Observation Date Name Description Value Unit Range Abnormal Flag Note LastModifiedBy Organization Detail LastModifiedTime 07/16/2007/16/2023 CBC/C OMPLE TE BLD COUNT W/DIF F white blood cells 6.4 x10'3 /uL 4.2-10 .8 Not Available [facility] (Lab) [address] [place], [address], 07/16/2023 13:24:57 07/16/2007/16/2023 CBC/C OMPLE TE BLD COUNT W/DIF F red blood cells 5.39 x10'6 /uL 4.10-5 .80 Not Available [facility] (Lab) [address] [place], [address], 07/16/2023 13:24:57 07/16/20 23 07/16/2023 CBC/C OMPLE TE BLD COUNT W/DIF F hemoglobin 16.7 g/dL 13.2-1 7.0 Not Available [facility] (Lab) [address] [place], [address], 07/16/2023 13:24:57 07/16/20 23 07/16/2023 CBC/C OMPLE TE BLD COUNT W/DIF F hematocrit 49.9 % 39.3-5 0.0 Not Available [facility] (Lab) [address] [place], [address], 07/16/2023 13:24:57 07/16/20 23 07/16/2023 CBC/C OMPLE TE BLD COUNT W/DIF F mean red cell volume 92.6 fL 80.0-9 7.0 Not Available [facility] (Lab) [address] [place], [address], 07/16/2023 13:24:57 07/16/20 23 07/16/2023 CBC/C OMPLE TE BLD COUNT W/DIF F mean red cell hemoglobin 31.0 pg 27.0-3 3.0 Not Available [facility] (Lab) [address] [place], [address], 07/16/2023 13:24:57 07/16/20 23 07/16/2023 CBC/C OMPLE TE BLD COUNT W/DIF F mean RBC HGB concentratio n 33.5 g/dL 31.0-3 6.0 Not Available [facility] (Lab) [address] [place], [address], 07/16/2023 13:24:57 07/16/20 23 07/16/2023 CBC/C OMPLE TE BLD COUNT W/DIF F red cell distribution width 14.7 % 11.8-1 5.5 Not Available [facility] (Lab) [address] [place], [address], 07/16/2023 13:24:57 07/16/20 23 07/16/2023 CBC/C OMPLE TE BLD COUNT W/DIF F platelets 169 x10'3 /uL 150-40 0 Not Available [facility] (Lab) [address] [place], [address], 07/16/2023 13:24:57 07/16/2007/16/2023 CBC/C OMPLE TE BLD COUNT W/DIF F mean platelet volume 11.6 fL 9.0-12 .4 Not Available [facility] (Lab) [address] [place], [address], 07/16/2023 13:24:57 07/16/20 23 07/16/2023 CBC/C OMPLE TE BLD COUNT W/DIF F neutrophils 59.7 % 39.0-7 2.0 Not Available [facility] (Lab) [address] [place], [address], 07/16/2023 13:24:57 07/16/20 23 07/16/2023 CBC/C OMPLE TE BLD COUNT W/DIF F lymphocytes 23.6 % 16.0-4 7.0 Not Available [facility] (Lab) [address] [place], [address], 07/16/2023 13:24:57 07/16/20 23 07/16/2023 CBC/C OMPLE TE BLD COUNT W/DIF F monocytes 10.0 % 5.0-12 .0 Not Available [facility] (Lab) [address] [place], [address], 07/16/2023 13:24:57 07/16/20 23 07/16/2023 CBC/C OMPLE TE BLD COUNT W/DIF F eosinophils 5.8 % 1.0-7. 0 Not Available [facility] (Lab) [address] [place], [address], 07/16/2023 13:24:57 07/16/20 23 07/16/2023 CBC/C OMPLE TE BLD COUNT W/DIF F basophils 0.6 % 0.0-2. 0 Not Available [facility] (Lab) [address] [place], [address], 07/16/2023 13:24:57 07/16/20 23 07/16/2023 CBC/C OMPLE TE BLD COUNT W/DIF F immature granulocytes 0.3 % 0.00-0 .50 Not Available [facility] (Lab) [address] [place], [address], 07/16/2023 13:24:57 07/16/20 23 07/16/2023 CBC/C OMPLE TE BLD COUNT W/DIF F neutrophils, absolute count 3.84 x10'3 /uL 1.5-8. 0 Not Available [facility] (Lab) [address] [place], [address], 07/16/2023 13:24:57 07/16/20 23 07/16/2023 CBC/C OMPLE TE BLD COUNT W/DIF F lymphocytes, absolute count 1.52 x10'3 /uL 1.07-3 .43 Not Available [facility] (Lab) [address] [place], [address], 07/16/2023 13:24:57 07/16/20 23 07/16/2023 CBC/C OMPLE TE BLD COUNT W/DIF F monocytes, absolute count 0.64 x10'3 /uL 0.29-0 .99 Not Available [facility] (Lab) [address] [place], [address], 07/16/2023 13:24:57 07/16/20 23 07/16/2023 CBC/C OMPLE TE BLD COUNT W/DIF F eosinophils, absolute count 0.37 x10'3 /uL 0.02-0 .53 Not Available [facility] (Lab) [address] [place], [address], 07/16/2023 13:24:57 07/16/20 23 07/16/2023 CBC/C OMPLE TE BLD COUNT W/DIF F basophils, absolute count 0.04 x10'3 /uL 0.01-0 .08 Not Available [facility] (Lab) [address] [place], [address], 07/16/2023 13:24:57 07/16/20 23 07/16/2023 CBC/C OMPLE TE BLD COUNT W/DIF F immature granulocytes ,absolute 0.02 x10'3 /uL 0.00-0 .05 Not Available [facility] (Lab) [address] [place], [address], 07/16/2023 13:24:57 07/16/20 23 07/16/2023 CBC/C OMPLE TE BLD COUNT W/DIF F nucleated red blood cells 0.0 % -0 Not Available [facility] (Lab) [address] [place], [address], 07/16/2023 13:24:57 07/16/20 23 07/16/2023 CBC/C OMPLE TE BLD COUNT W/DIF F NRBC# 0.00 x10'3 /uL Not Available [facility] (Lab) [address] [place], [address], 07/16/2023 13:24:57 07/16/20 23 07/16/2023 LIPID PANEL cholesterol 140 mg/dL 140-19 9 NIH HEATHER NSUS RECOM MENDA TION FOR JUDY STERO L: ADULT CHILD LOW RISK: <200 <170 BORDE RLINE : <200- 239 ----- HIGH RISK: >240 >200 Not Available [facility] (Lab) [address] [place], [address], 07/16/2023 14:40:14 07/16/20 23 07/16/2023 LIPID PANEL triglyceride s 105 mg/dL 0-150 [facility] HEATHER NSUS REPOR T RECOM MENDA TION FOR TRIGL YCERI WILD: ADULT CHILD LOW RISK: <150 ----- BODER LINE: 150-1 99 ----- HIGH RISK: >200 ----- Not Available [facility] (Lab) [address] [place], [address], 07/16/2023 14:40:14 07/16/20 23 07/16/2023 LIPID PANEL HDL cholesterol 40 mg/dL 40- Not Available [facility] (Lab) [address] [place], [address], 07/16/2023 14:40:14 07/16/20 23 07/16/2023 LIPID PANEL LDL cholesterol, calculated 79 mg/dL 0-130 NIH HEATHER NSUS REPOR T RECOM MENDA TIONS FOR LDL: ADULT CHILD LOW RISK <130 <110 (OPTI MAL LDL) <100 ----- BORDE RLINE : 130-1 59 ----- HIGH RISK: >160 >130 A TRIGL YCERI DE RESUL T >400 INVAL IDATE S THE CALCU LATIO N FOR LDL FRACT IONAT ION - THE LDL RESUL T WILL NOT BE REPOR MARCIO. Not Available [facility] (Lab) [address] [place], [address], 07/16/2023 14:40:14 07/16/20 23 07/16/2023 COMPR EHENS ELFEGO METAB OLIC PANEL sodium 138 mmol/ L 137-14 5 Not Available [facility] (Lab) [address] [place], [address], 07/16/2023 16:00:57 07/16/20 23 07/16/2023 COMPR EHENS ELFEGO METAB OLIC PANEL potassium 4.6 mmol/ L 3.5-5. 1 Not Available [facility] (Lab) [address] [place], [address], 07/16/2023 16:00:57 07/16/20 23 07/16/2023 COMPR EHENS ELFEGO METAB OLIC PANEL chloride 104 mmol/ L 98-107 Not Available [facility] (Lab) [address] [place], [address], 07/16/2023 16:00:57 07/16/20 23 07/16/2023 COMPR EHENS ELFEGO METAB OLIC PANEL carbon dioxide 30 mmol/ L 22-30 Not Available [facility] (Lab) [address] [place], [address], 07/16/2023 16:00:57 07/16/20 23 07/16/2023 COMPR EHENS ELFEGO METAB OLIC PANEL anion gap 8.6 mmol/ L 14-22 low Not Available [facility] (Lab) [address] [place], [address], 07/16/2023 16:00:57 07/16/20 23 07/16/2023 COMPR EHENS ELFEGO METAB OLIC PANEL glucose 94 mg/dL 70-99 Not Available [facility] (Lab) [address] [place], [address], 07/16/2023 16:00:57 07/16/20 23 07/16/2023 COMPR EHENS ELFEGO METAB OLIC PANEL BUN 24 mg/dL 8-19 high Not Available [facility] (Lab) [address] [place], [address], 07/16/2023 16:00:57 07/16/20 23 07/16/2023 COMPR EHENS ELFEGO METAB OLIC PANEL creatinine 1.35 mg/dL 0.66-1 .25 high Not Available [facility] (Lab) [address] [place], [address], 07/16/2023 16:00:57 07/16/20 23 07/16/2023 COMPR EHENS ELFEGO METAB OLIC PANEL GFR 51 Refer ence Range : [place] ge GFR Healt hy Adult : >60 mL/mi n/1.7 3 m2 Chron ic Kidne y Disea se: 15-60 mL/mi n/1.7 3 m2 Kidne y Failu re: <15/m L/min /1.73 m2 www.n iddk. nih.g ov The MDRD study equat ion has not been valid ated in child radha <18 years of age; pregn ant women ; the elder ly >85 years of age; or in some racia l or ethni c subgr oups, such as Hispa nics. Outsi de the valid ated otis eters , estim ated GFR is less accur ate, requi ring clini pietro judgm ent on a case- by-ca se basis . Clini pietro inter preta tion for other races and ages must be made by the clini leida. The MDRD study equat ion has not been valid ated for the evalu ation of serum creat inine relat ed to nutri avinash l statu s or medic ation usage . For perso ns <18 years of age, a pedia tric GFR calcu lator is avail able on the [facility] websi te: [email or web address] :[email or web address] ofess ional s/kdo qi/gf r_cal culat or Not Available [facility] (Lab) [address] [place], [address], 07/16/2023 16:00:57 07/16/20 23 07/16/2023 COMPR EHENS ELFEGO METAB OLIC PANEL alkaline phosphatase 82 U/L 38-126 Not Available [facility] (Lab) [address] [place], [address], 07/16/2023 16:00:57 07/16/20 23 07/16/2023 COMPR EHENS ELFEGO METAB OLIC PANEL alanine aminotransfe rase 19 U/L 0-50 Not Available [facility] (Lab) [address] [place], [address], 07/16/2023 16:00:57 07/16/20 23 07/16/2023 COMPR EHENS ELFEGO METAB OLIC PANEL aspartate aminotransfe rase 34 U/L 15-46 Not Available [facility] (Lab) [address] [place], [address], 07/16/2023 16:00:57 07/16/20 23 07/16/2023 COMPR EHENS ELFEGO METAB OLIC PANEL bilirubin, total 0.80 mg/dL 0.20-1 .30 Not Available [facility] (Lab) [address] [place], [address], 07/16/2023 16:00:57 07/16/20 23 07/16/2023 COMPR EHENS ELFEGO METAB OLIC PANEL calcium 9.4 mg/dL 8.4-10 .2 Not Available [facility] (Lab) [address] [place], [address], 07/16/2023 16:00:57 07/16/20 23 07/16/2023 COMPR EHENS ELFEGO METAB OLIC PANEL total protein 7.8 g/dL 6.3-8. 2 Not Available [facility] (Lab) [address] [place], [address], 07/16/2023 16:00:57 07/16/20 23 07/16/2023 COMPR EHENS ELFEGO METAB OLIC PANEL albumin 3.7 g/dL 3.0-4. 4 Not Available [facility] (Lab) [address] [place], [address], 07/16/2023 16:00:57 07/16/20 23 07/16/2023 COMPR EHENS ELFEGO METAB OLIC PANEL globulin 4.1 g/dL 2.6-4. 2 Not Available [facility] (Lab) [address] [place], [address], 07/16/2023 16:00:57 07/16/20 23 07/16/2023 COMPR EHENS ELFEGO METAB OLIC PANEL A/G ratio 0.9 ratio 1.0-2. 0 low Not Available [facility] (Lab) [address] [place], [address], 07/16/2023 16:00:57 07/16/20 23 07/16/2023 T4 FREE free T4 1.64 NG/dL 0.78-2 .19 Not Available [facility] (Lab) [address] [place], [address], 07/16/2023 15:08:42 07/16/20 23 07/16/2023 TSH thyroid-stim ulating hormone 1.000 uIU/m L 0.465- 4.680 Not Available [facility] (Lab) [address] [place], [address], 07/16/2023 15:11:30 07/16/2007/16/2023 VITAM IN D 25-HY DROXY vd25oh 35.7 NG/mL 30-100 Vitam in D Statu s: Defic ient: <20 ng/mL Insuf ficie nt: 20-29 ng/mL Suffi cient : 30-10 0 ng/mL Not Available [facility] (Lab) [address] [place], [address], 07/16/2023 18:03:11 07/16/20 23 07/16/2023 VITAM IN B12 (ANNELIESE JASPER ) vb12 527 pg/mL 239-93 1 Not Available [facility] (Lab) [address] [place] [address], [address], 07/16/2023 18:58:54 07/16/20 23 07/16/2023 FOLAT E, SERUM /PLAS MA folate 7.54 NG/mL 2.76-2 0.0 Not Available [facility] (Lab) [address] [place], [address], 07/16/2023 18:59:00 11/13/19 24 11/13/2023 CBC/C OMPLE TE BLD COUNT W/DIF F white blood cells 7.0 x10'3 /uL 4.2-10 .8 Not Available [facility] (Lab) [address] [place], [address], 11/13/2023 13:47:22 11/13/19 24 11/13/2023 CBC/C OMPLE TE BLD COUNT W/DIF F red blood cells 5.32 x10'6 /uL 4.10-5 .80 Not Available [facility] (Lab) [address] [place], [address], 11/13/2023 13:47:22 11/13/19 24 11/13/2023 CBC/C OMPLE TE BLD COUNT W/DIF F hemoglobin 16.7 g/dL 13.2-1 7.0 Not Available [facility] (Lab) [address] [place], [address], 11/13/2023 13:47:22 11/13/19 24 11/13/2023 CBC/C OMPLE TE BLD COUNT W/DIF F hematocrit 48.6 % 39.3-5 0.0 Not Available [facility] (Lab) [address] [place], [address], 11/13/2023 13:47:22 11/13/19 24 11/13/2023 CBC/C OMPLE TE BLD COUNT W/DIF F mean red cell volume 91.4 fL 80.0-9 7.0 Not Available [facility] (Lab) [address] [place], [address], 11/13/2023 13:47:22 11/13/19 24 11/13/2023 CBC/C OMPLE TE BLD COUNT W/DIF F mean red cell hemoglobin 31.4 pg 27.0-3 3.0 Not Available [facility] (Lab) [address] [place], [address], 11/13/2023 13:47:22 11/13/19 24 11/13/2023 CBC/C OMPLE TE BLD COUNT W/DIF F mean RBC HGB concentratio n 34.4 g/dL 31.0-3 6.0 Not Available [facility] (Lab) [address] [place], [address], 11/13/2023 13:47:22 11/13/19 24 11/13/2023 CBC/C OMPLE TE BLD COUNT W/DIF F red cell distribution width 14.2 % 11.8-1 5.5 Not Available [facility] (Lab) [address] [place], [address], 11/13/2023 13:47:22 11/13/19 24 11/13/2023 CBC/C OMPLE TE BLD COUNT W/DIF F platelets 154 x10'3 /uL 150-40 0 Not Available [facility] (Lab) [address] [place], [address], 11/13/2023 13:47:22 11/13/19 24 11/13/2023 CBC/C OMPLE TE BLD COUNT W/DIF F mean platelet volume 11.6 fL 9.0-12 .4 Not Available [facility] (Lab) [address] [place], [address], 11/13/2023 13:47:22 11/13/19 24 11/13/2023 CBC/C OMPLE TE BLD COUNT W/DIF F neutrophils 57.4 % 39.0-7 2.0 Not Available [facility] (Lab) [address] [place], [address], 11/13/2023 13:47:22 11/13/19 24 11/13/2023 CBC/C OMPLE TE BLD COUNT W/DIF F lymphocytes 27.3 % 16.0-4 7.0 Not Available [facility] (Lab) [address] [place], [address], 11/13/2023 13:47:22 11/13/19 24 11/13/2023 CBC/C OMPLE TE BLD COUNT W/DIF F monocytes 9.1 % 5.0-12 .0 Not Available [facility] (Lab) [address] [place], [address], 11/13/2023 13:47:22 11/13/19 24 11/13/2023 CBC/C OMPLE TE BLD COUNT W/DIF F eosinophils 5.1 % 1.0-7. 0 Not Available [facility] (Lab) [address] [place], [address], 11/13/2023 13:47:22 11/13/19 24 11/13/2023 CBC/C OMPLE TE BLD COUNT W/DIF F basophils 1.0 % 0.0-2. 0 Not Available [facility] (Lab) [address] [place], [address], 11/13/2023 13:47:22 11/13/19 24 11/13/2023 CBC/C OMPLE TE BLD COUNT W/DIF F immature granulocytes 0.1 % 0.00-0 .50 Not Available [facility] (Lab) [address] [place], [address], 11/13/2023 13:47:22 11/13/19 24 11/13/2023 CBC/C OMPLE TE BLD COUNT W/DIF F neutrophils, absolute count 4.01 x10'3 /uL 1.5-8. 0 Not Available [facility] (Lab) [address] [place], [address], 11/13/2023 13:47:22 11/13/19 24 11/13/2023 CBC/C OMPLE TE BLD COUNT W/DIF F lymphocytes, absolute count 1.91 x10'3 /uL 1.07-3 .43 Not Available [facility] (Lab) [address] [place], [address], 11/13/2023 13:47:22 11/13/19 24 11/13/2023 CBC/C OMPLE TE BLD COUNT W/DIF F monocytes, absolute count 0.64 x10'3 /uL 0.29-0 .99 Not Available [facility] (Lab) [address] [place], [address], 11/13/2023 13:47:22 11/13/19 24 11/13/2023 CBC/C OMPLE TE BLD COUNT W/DIF F eosinophils, absolute count 0.36 x10'3 /uL 0.02-0 .53 Not Available [facility] (Lab) [address] [place], [address], 11/13/2023 13:47:22 11/13/19 24 11/13/2023 CBC/C OMPLE TE BLD COUNT W/DIF F basophils, absolute count 0.07 x10'3 /uL 0.01-0 .08 Not Available [facility] (Lab) [address] [place], [address], 11/13/2023 13:47:22 11/13/19 24 11/13/2023 CBC/C OMPLE TE BLD COUNT W/DIF F immature granulocytes ,absolute 0.01 x10'3 /uL 0.00-0 .05 Not Available [facility] (Lab) [address] [place], [address], 11/13/2023 13:47:22 11/13/19 24 11/13/2023 CBC/C OMPLE TE BLD COUNT W/DIF F nucleated red blood cells 0.0 % -0 Not Available [facility] (Lab) [address] [place], [address], 11/13/2023 13:47:22 11/13/19 24 11/13/2023 CBC/C OMPLE TE BLD COUNT W/DIF F NRBC# 0.00 x10'3 /uL Not Available [facility] (Lab) [address] [place], [address], 11/13/2023 13:47:22 11/13/19 24 11/13/2023 LIPID PANEL cholesterol 125 mg/dL 140-19 9 low NIH HEATHER NSUS RECOM MENDA TION FOR JUDY STERO L: ADULT CHILD LOW RISK: <200 <170 BORDE RLINE : <200- 239 ----- HIGH RISK: >240 >200 Not Available [facility] (Lab) [address] [place], [address], 11/13/2023 17:19:34 11/13/19 24 11/13/2023 LIPID PANEL triglyceride s 120 mg/dL 0-150 NIH HEATHER NSUS REPOR T RECOM MENDA TION FOR TRIGL YCERI WILD: ADULT CHILD LOW RISK: <150 ----- BODER LINE: 150-1 99 ----- HIGH RISK: >200 ----- Not Available [facility] (Lab) [address] [place], [address], 11/13/2023 17:19:34 11/13/19 24 11/13/2023 LIPID PANEL HDL cholesterol 48 mg/dL 40- Not Available [facility] (Lab) [address] [place], [address], 11/13/2023 17:19:34 11/13/19 24 11/13/2023 LIPID PANEL LDL cholesterol, calculated 53 mg/dL 0-130 NIH HEATHER NSUS REPOR T RECOM MENDA TIONS FOR LDL: ADULT CHILD LOW RISK <130 <110 (OPTI MAL LDL) <100 ----- BORDE RLINE : 130-1 59 ----- HIGH RISK: >160 >130 A TRIGL YCERI DE RESUL T >400 INVAL IDATE S THE CALCU LATIO N FOR LDL FRACT IONAT ION - THE LDL RESUL T WILL NOT BE REPOR MARCIO. Not Available [facility] (Lab) [address] [place], [address], 11/13/2023 17:19:34 11/13/19 24 11/13/2023 COMPR EHENS ELFEGO METAB OLIC PANEL sodium 137 mmol/ L 137-14 5 Not Available [facility] (Lab) [address] [place], [address], 11/13/2023 17:19:39 11/13/19 24 11/13/2023 COMPR EHENS ELFEGO METAB OLIC PANEL potassium 4.4 mmol/ L 3.5-5. 1 Not Available [facility] (Lab) [address] [place], [address], 11/13/2023 17:19:39 11/13/19 24 11/13/2023 COMPR EHENS ELFEGO METAB OLIC PANEL chloride 108 mmol/ L 98-107 high Not Available [facility] (Lab) [address] [place], [address], 11/13/2023 17:19:39 11/13/19 24 11/13/2023 COMPR EHENS ELFEGO METAB OLIC PANEL carbon dioxide 24 mmol/ L 22-30 Not Available [facility] (Lab) [address] [place], [address], 11/13/2023 17:19:39 11/13/19 24 11/13/2023 COMPR EHENS ELFEGO METAB OLIC PANEL anion gap 9.4 mmol/ L 14-22 low Not Available [facility] (Lab) [address] [place], [address], 11/13/2023 17:19:39 11/13/19 24 11/13/2023 COMPR EHENS ELFEGO METAB OLIC PANEL glucose 99 mg/dL 70-99 Not Available [facility] (Lab) [address] [place], [address], 11/13/2023 17:19:39 11/13/19 24 11/13/2023 COMPR EHENS ELFEGO METAB OLIC PANEL BUN 24 mg/dL 8-19 high Not Available [facility] (Lab) [address] [place], [address], 11/13/2023 17:19:39 11/13/19 24 11/13/2023 COMPR EHENS ELFEGO METAB OLIC PANEL creatinine 1.25 mg/dL 0.66-1 .25 Not Available [facility] (Lab) [address] [place], [address], 11/13/2023 17:19:39 11/13/19 24 11/13/2023 COMPR EHENS ELFEGO METAB OLIC PANEL GFR 56 Refer ence Range : [place] ge GFR Healt hy Adult : >60 mL/mi n/1.7 3 m2 Chron ic Kidne y Disea se: 15-60 mL/mi n/1.7 3 m2 Kidne y Failu re: <15/m L/min /1.73 m2 www.n iddk. nih.g ov The MDRD study equat ion has not been valid ated in child radha <18 years of age; pregn ant women ; the elder ly >85 years of age; or in some racia l or ethni c subgr oups, such as [facility] nics. Outsi de the valid ated otis eters , estim ated GFR is less accur ate, requi ring clini pietro judgm ent on a case- by-ca se basis . Clini pietro inter preta tion for other races and ages must be made by the clini leida. The MDRD study equat ion has not been valid ated for the evalu ation of serum creat inine relat ed to nutri avinash l statu s or medic ation usage . For perso ns <18 years of age, a pedia tric GFR calcu lator is avail able on the [facility] websi te: https :[email or web address] [email or web address] rg/pr ofess ional s/kdo qi/gf r_cal culat or Not Available [facility] (Lab) [address] [place], [address], 11/13/2023 17:19:39 11/13/19 24 11/13/2023 COMPR EHENS ELFEGO METAB OLIC PANEL alkaline phosphatase 84 U/L 38-126 Not Available [facility] (Lab) [address] [place], [address], 11/13/2023 17:19:39 11/13/19 24 11/13/2023 COMPR EHENS ELFEGO METAB OLIC PANEL alanine aminotransfe rase 16 U/L 0-50 Not Available [facility] (Lab) [address] [place], [address], 11/13/2023 17:19:39 11/13/19 24 11/13/2023 COMPR EHENS ELFEGO METAB OLIC PANEL aspartate aminotransfe rase 34 U/L 15-46 Not Available [facility] (Lab) [address] [place], [address], 11/13/2023 17:19:39 11/13/19 24 11/13/2023 COMPR EHENS ELFEGO METAB OLIC PANEL bilirubin, total 0.80 mg/dL 0.20-1 .30 Not Available [facility] (Lab) [address] [place], [address], 11/13/2023 17:19:39 11/13/19 24 11/13/2023 COMPR EHENS ELFEGO METAB OLIC PANEL calcium 9.1 mg/dL 8.4-10 .2 Not Available [facility] (Lab) [address] [place], [address], 11/13/2023 17:19:39 11/13/19 24 11/13/2023 COMPR EHENS ELFEGO METAB OLIC PANEL total protein 7.5 g/dL 6.3-8. 2 Not Available [facility] (Lab) [address] [place], [address], 11/13/2023 17:19:39 11/13/19 24 11/13/2023 COMPR EHENS ELFEGO METAB OLIC PANEL albumin 3.9 g/dL 3.0-4. 4 Not Available [facility] (Lab) [address] [place], [address], 11/13/2023 17:19:39 11/13/19 24 11/13/2023 COMPR EHENS ELFEGO METAB OLIC PANEL globulin 3.6 g/dL 2.6-4. 2 Not Available [facility] (Lab) [address] [place], [address], 11/13/2023 17:19:39 11/13/19 24 11/13/2023 COMPR EHENS ELFEGO METAB OLIC PANEL A/G ratio 1.1 ratio 1.0-2. 0 Not Available [facility] (Lab) [address] [place], [address], 11/13/2023 17:19:39 11/13/19 24 11/13/2023 T4 FREE free T4 1.31 NG/dL 0.78-2 .19 Not Available [facility] (Lab) [address] [place], [address], 11/13/2023 17:30:58 11/13/19 24 11/13/2023 VITAM IN D 25-HY DROXY vd25oh 29.7 NG/mL 30-100 low Vitam in D Statu s: Defic ient: <20 ng/mL Insuf ficie nt: 20-29 ng/mL Suffi cient : 30-10 0 ng/mL Not Available [facility] (Lab) [address] [place], [address], 11/13/2023 17:31:23 11/13/19 24 11/13/2023 TSH thyroid-stim ulating hormone 4.240 uIU/m L 0.465- 4.680 Not Available [facility] (Lab) [address] [place], [address], 11/13/2023 17:50:58 11/13/19 24 11/13/2023 VITAM IN B12 (ANNELIESE JASPER ) vb12 776 pg/mL 239-93 1 Not Available [facility] (Lab) [address] [place], [address], 11/13/2023 18:23:23 11/13/19 24 11/13/2023 FOLAT E, SERUM /PLAS MA folate 7.87 NG/mL 2.76-2 0.0 Not Available [facility] (Lab) [address] [place], [address], 11/13/2023 18:23:24 04/21/20 24 04/21/2024 CBC/C OMPLE TE BLD COUNT W/DIF F white blood cells 6.3 x10'3 /uL 4.2-10 .8 Not Available [facility] (Lab) [address] [place], [address], 04/21/2024 12:55:25 04/21/20 24 04/21/2024 CBC/C OMPLE TE BLD COUNT W/DIF F red blood cells 5.10 x10'6 /uL 4.10-5 .80 Not Available [facility] (Lab) [address] [place], [address], 04/21/2024 12:55:25 04/21/20 24 04/21/2024 CBC/C OMPLE TE BLD COUNT W/DIF F hemoglobin 15.8 g/dL 13.2-1 7.0 Not Available [facility] (Lab) [address] [place], [address], 04/21/2024 12:55:25 04/21/20 24 04/21/2024 CBC/C OMPLE TE BLD COUNT W/DIF F hematocrit 47.1 % 39.3-5 0.0 Not Available [facility] (Lab) [address] [place], [address], 04/21/2024 12:55:25 04/21/20 24 04/21/2024 CBC/C OMPLE TE BLD COUNT W/DIF F mean red cell volume 92.4 fL 80.0-9 7.0 Not Available [facility] (Lab) [address] [place], [address], 04/21/2024 12:55:25 04/21/20 24 04/21/2024 CBC/C OMPLE TE BLD COUNT W/DIF F mean red cell hemoglobin 31.0 pg 27.0-3 3.0 Not Available [facility] (Lab) [address] [place], [address], 04/21/2024 12:55:25 04/21/20 24 04/21/2024 CBC/C OMPLE TE BLD COUNT W/DIF F mean RBC HGB concentratio n 33.5 g/dL 31.0-3 6.0 Not Available [facility] (Lab) [address] [place], [address], 04/21/2024 12:55:25 04/21/20 24 04/21/2024 CBC/C OMPLE TE BLD COUNT W/DIF F red cell distribution width 14.6 % 11.8-1 5.5 Not Available [facility] (Lab) [address] [place], [address], 04/21/2024 12:55:25 04/21/20 24 04/21/2024 CBC/C OMPLE TE BLD COUNT W/DIF F platelets 150 x10'3 /uL 150-40 0 Not Available [facility] (Lab) [address] [place], [address], 04/21/2024 12:55:25 04/21/20 24 04/21/2024 CBC/C OMPLE TE BLD COUNT W/DIF F mean platelet volume 11.3 fL 9.0-12 .4 Not Available [facility] (Lab) [address] [place], [address], 04/21/2024 12:55:25 04/21/20 24 04/21/2024 CBC/C OMPLE TE BLD COUNT W/DIF F neutrophils 64.1 % 39.0-7 2.0 Not Available [facility] (Lab) [address] [place], [address], 04/21/2024 12:55:25 04/21/2004/21/2024 CBC/C OMPLE TE BLD COUNT W/DIF F lymphocytes 22.8 % 16.0-4 7.0 Not Available [facility] (Lab) [address] [place], [address], 04/21/2024 12:55:25 04/21/20 24 04/21/2024 CBC/C OMPLE TE BLD COUNT W/DIF F monocytes 9.0 % 5.0-12 .0 Not Available [facility] (Lab) [address] [place], [address], 04/21/2024 12:55:25 04/21/20 24 04/21/2024 CBC/C OMPLE TE BLD COUNT W/DIF F eosinophils 3.3 % 1.0-7. 0 Not Available [facility] (Lab) [address] [place], [address], 04/21/2024 12:55:25 04/21/20 24 04/21/2024 CBC/C OMPLE TE BLD COUNT W/DIF F basophils 0.6 % 0.0-2. 0 Not Available [facility] (Lab) [address] [place], [address], 04/21/2024 12:55:25 04/21/20 24 04/21/2024 CBC/C OMPLE TE BLD COUNT W/DIF F immature granulocytes 0.2 % 0.00-0 .50 Not Available [facility] (Lab) [address] [place], [address], 04/21/2024 12:55:25 04/21/20 24 04/21/2024 CBC/C OMPLE TE BLD COUNT W/DIF F neutrophils, absolute count 4.04 x10'3 /uL 1.5-8. 0 Not Available [facility] (Lab) [address] [place], [address], 04/21/2024 12:55:25 04/21/20 24 04/21/2024 CBC/C OMPLE TE BLD COUNT W/DIF F lymphocytes, absolute count 1.44 x10'3 /uL 1.07-3 .43 Not Available [facility] (Lab) [address] [place], [address], 04/21/2024 12:55:25 04/21/20 24 04/21/2024 CBC/C OMPLE TE BLD COUNT W/DIF F monocytes, absolute count 0.57 x10'3 /uL 0.29-0 .99 Not Available [facility] (Lab) [address] [place], [address], 04/21/2024 12:55:25 04/21/2004/21/2024 CBC/C OMPLE TE BLD COUNT W/DIF F eosinophils, absolute count 0.21 x10'3 /uL 0.02-0 .53 Not Available [facility] (Lab) [address] [place], [address], 04/21/2024 12:55:25 04/21/20 24 04/21/2024 CBC/C OMPLE TE BLD COUNT W/DIF F basophils, absolute count 0.04 x10'3 /uL 0.01-0 .08 Not Available [facility] (Lab) [address] [place], [address], 04/21/2024 12:55:25 04/21/20 24 04/21/2024 CBC/C OMPLE TE BLD COUNT W/DIF F immature granulocytes ,absolute 0.01 x10'3 /uL 0.00-0 .05 Not Available [facility] (Lab) [address] [place], [address], 04/21/2024 12:55:25 04/21/20 24 04/21/2024 CBC/C OMPLE TE BLD COUNT W/DIF F nucleated red blood cells 0.0 % -0 Not Available [facility] (Lab) [address] [place], [address], 04/21/2024 12:55:25 04/21/20 24 04/21/2024 CBC/C OMPLE TE BLD COUNT W/DIF F NRBC# 0.00 x10'3 /uL Not Available [facility] (Lab) [address] [place], [address], 04/21/2024 12:55:25 04/21/20 24 04/21/2024 COMPR EHENS ELFEGO METAB OLIC PANEL sodium 135 mmol/ L 137-14 5 low Not Available [facility] (Lab) [address] [place], [address], 04/21/2024 13:18:12 04/21/20 24 04/21/2024 COMPR EHENS ELFEGO METAB OLIC PANEL potassium 4.4 mmol/ L 3.5-5. 1 Not Available [facility] (Lab) [address] [place], [address], 04/21/2024 13:18:12 04/21/20 24 04/21/2024 COMPR EHENS ELFEGO METAB OLIC PANEL chloride 105 mmol/ L 98-107 Not Available [facility] (Lab) [address] [place], [address], 04/21/2024 13:18:12 04/21/20 24 04/21/2024 COMPR EHENS ELFEGO METAB OLIC PANEL carbon dioxide 23 mmol/ L 22-30 Not Available [facility] (Lab) [address] [place], [address], 04/21/2024 13:18:12 04/21/20 24 04/21/2024 COMPR EHENS ELFEGO METAB OLIC PANEL anion gap 11.4 mmol/ L 14-22 low Not Available [facility] (Lab) [address] [place], [address], 04/21/2024 13:18:12 04/21/20 24 04/21/2024 COMPR EHENS ELFEGO METAB OLIC PANEL glucose 99 mg/dL 70-99 Not Available [facility] (Lab) [address] [place], [address], 04/21/2024 13:18:12 04/21/20 24 04/21/2024 COMPR EHENS ELFEGO METAB OLIC PANEL BUN 28 mg/dL 8-19 high Not Available [facility] (Lab) [address] [place], [address], 04/21/2024 13:18:12 04/21/20 24 04/21/2024 COMPR EHENS ELFEGO METAB OLIC PANEL creatinine 1.24 mg/dL 0.66-1 .25 Not Available [facility] (Lab) [address] [place], [address], 04/21/2024 13:18:12 04/21/20 24 04/21/2024 COMPR EHENS ELFEGO METAB OLIC PANEL GFR 56 Refer ence Range : [place] ge GFR Healt hy Adult : >60 mL/mi n/1.7 3 m2 Chron ic Kidne y Disea se: 15-60 mL/mi n/1.7 3 m2 Kidne y Failu re: <15/m L/min /1.73 m2 [email or web address] The MDRD study equat ion has not been valid ated in child radha <18 years of age; pregn ant women ; the elder ly >85 years of age; or in some racia l or ethni c subgr oups, such as Hispa nics. Outsi de the valid ated otis eters , estim ated GFR is less accur ate, requi ring clini pietro judgm ent on a case- by-ca se basis . Clini pietro inter preta tion for other races and ages must be made by the clini leida. The MDRD study equat ion has not been valid ated for the evalu ation of serum creat inine relat ed to nutri avinash l statu s or medic ation usage . For perso ns <18 years of age, a pedia tric GFR calcu lator is avail able on the [facility] websi te: [email or web address] culat or Not Available [facility] (Lab) [address] [place], [address], 04/21/2024 13:18:12 04/21/20 24 04/21/2024 COMPR EHENS ELFEGO METAB OLIC PANEL alkaline phosphatase 111 U/L 38-126 Not Available [facility] (Lab) [address] [place], [address], 04/21/2024 13:18:12 04/21/20 24 04/21/2024 COMPR EHENS ELFEGO METAB OLIC PANEL alanine aminotransfe rase 21 U/L 0-50 Not Available [facility] (Lab) [address] [place], [address], 04/21/2024 13:18:12 04/21/20 24 04/21/2024 COMPR EHENS ELFEGO METAB OLIC PANEL aspartate aminotransfe rase 34 U/L 15-46 Not Available [facility] (Lab) [address] [place], [address], 04/21/2024 13:18:12 04/21/20 24 04/21/2024 COMPR EHENS ELFEGO METAB OLIC PANEL bilirubin, total 0.70 mg/dL 0.20-1 .30 Not Available [facility] (Lab) [address] [place], [address], 04/21/2024 13:18:12 04/21/20 24 04/21/2024 COMPR EHENS ELFEGO METAB OLIC PANEL calcium 8.8 mg/dL 8.4-10 .2 Not Available [facility] (Lab) [address] [place], [address], 04/21/2024 13:18:12 04/21/20 24 04/21/2024 COMPR EHENS ELFEGO METAB OLIC PANEL total protein 7.4 g/dL 6.3-8. 2 Not Available [facility] (Lab) [address] [place], [address], 04/21/2024 13:18:12 04/21/20 24 04/21/2024 COMPR EHENS ELFEGO METAB OLIC PANEL albumin 3.7 g/dL 3.0-4. 4 Not Available [facility] (Lab) [address] [place], [address], 04/21/2024 13:18:12 04/21/20 24 04/21/2024 COMPR EHENS ELFEGO METAB OLIC PANEL globulin 3.7 g/dL 2.6-4. 2 Not Available [facility] (Lab) [address] [place], [address], 04/21/2024 13:18:12 04/21/20 24 04/21/2024 COMPR EHENS ELFEGO METAB OLIC PANEL A/G ratio 1.0 ratio 1.0-2. 0 Not Available [facility] (Lab) [address] [place], [address], 04/21/2024 13:18:12 04/21/20 24 04/21/2024 LIPID PANEL cholesterol 124 mg/dL 140-19 9 low NIH HEATHER NSUS RECOM MENDA TION FOR JUDY STERO L: ADULT CHILD LOW RISK: <200 <170 BORDE RLINE : <200- 239 ----- HIGH RISK: >240 >200 Not Available [facility] (Lab) [address] [place], [address], 04/21/2024 13:18:17 04/21/2004/21/2024 LIPID PANEL triglyceride s 101 mg/dL 0-150 NIH HEATHER NSUS REPOR T RECOM MENDA TION FOR TRIGL YCERI WILD: ADULT CHILD LOW RISK: <150 ----- BODER LINE: 150-1 99 ----- HIGH RISK: >200 ----- Not Available [facility] (Lab) [address] [place], [address], 04/21/2024 13:18:17 04/21/2004/21/2024 LIPID PANEL HDL cholesterol 49 mg/dL 40- Not Available [facility] (Lab) [address] [place], [address], 04/21/2024 13:18:17 04/21/2004/21/2024 LIPID PANEL LDL cholesterol, calculated 55 mg/dL 0-130 NIH HEATHER NSUS REPOR T RECOM MENDA TIONS FOR LDL: ADULT CHILD LOW RISK <130 <110 (OPTI MAL LDL) <100 ----- BORDE RLINE : 130-1 59 ----- HIGH RISK: >160 >130 A TRIGL YCERI DE RESUL T >400 INVAL IDATE S THE CALCU LATIO N FOR LDL FRACT IONAT ION - THE LDL RESUL T WILL NOT BE REPOR MARCIO. Not Available [facility] (Lab) [address] [place], [address], 04/21/2024 13:18:17 04/21/20 24 04/21/2024 VITAM IN D 25-HY DROXY vd25oh 38.3 NG/mL 30-100 Vitam in D Statu s: Defic ient: <20 ng/mL Insuf ficie nt: 20-29 ng/mL Suffi cient : 30-10 0 ng/mL Not Available [facility] (Lab) [address] [place], [address], 04/21/2024 14:27:32 04/21/20 24 04/21/2024 T4 FREE free T4 1.38 NG/dL 0.78-2 .19 Not Available [facility] (Lab) [address] [place], [address], 04/21/2024 13:32:57 04/21/20 24 04/21/2024 TSH thyroid-stim ulating hormone 7.700 uIU/m L 0.465- 4.680 high Not Available [facility] (Lab) [address] [place], [address], 04/21/2024 13:55:06 04/21/20 24 04/21/2024 PSA SCREE N PSA medicare screen <0.064 NG/mL 0.00-4 .00 Not Available [facility] (Lab) [address] [place], [address], 04/21/2024 13:55:16 04/21/20 24 04/21/2024 VITAM IN B12 (ANNELIESE JASPER ) vb12 590 pg/mL 239-93 1 Not Available [facility] (Lab) [address] [place], [address], 04/21/2024 14:19:36 04/21/20 24 04/21/2024 FOLAT E, SERUM /PLAS MA folate 3.66 NG/mL 2.76-2 0.0 Not Available [facility] (Lab) [address] [place], [address], 04/21/2024 14:19:41 Result Notes None recorded. Problems Name Problem SNOMED Code Status Onset Date Resolution Date Notes Provider Name and Address Organization Details Recorded Time Erythrocyt osis 334859130 Active 2021 Not Available [employer] 3 23:33:28 Cobalamin deficiency 725072746 Active 2021 Not Available [facility] 3 23:33:28 Open wound of back 795611184 Active 2021 Not Available [facility] 3 23:33:28 Cough 88197774 Active 2021 Not Available [facility] 3 23:33:29 Essential hypertensi on 78839096 Active 2021 Not Available [facility] 3 23:33:29 Wound of abdomen 636136053 Active 2021 Not Available [facility] 3 23:33:29 Erectile dysfunctio n 669506712 Active 2021 Not Available [facility] 3 23:33:29 Hyperlipid emia 93362968 Active 2022 Ingrid wallis, [employer] [facility] 3 09:09:33 Vitamin D deficiency 23536624 Active 2022 Ingrid wallis, [employer] [facility] 3 09:10:21 Hypothyroi dism 33505033 Active 2022 Tobias saucedo MD [address], [address], [address] , [employer] [facility] 3 15:19:53 Moderate recurrent major depression 35260949 Active 2022 Tobias saucedo MD [address], [facility] [address], [place], [address] , [employer] [facility] 3 15:19:58 Serum vitamin B12 below reference range 335178066 Active 2022 Tobias saucedo MD [address], [facility] [address], [place], [address] , [employer] [facility] 3 15:20:24 Chronic obstructiv e pulmonary disease 50934901 Active 2022 Tobias saucedo MD [address], [address], [place], [address] , [place] [facility] 3 15:20:39 Chronic pain 08773573 Active 2022 Tobias saucedo MD [address], [address], [place], [address] , [place] [facility] 3 15:20:45 Obstructiv e sleep apnea syndrome 02192066 Active 2022 Tobias saucedo MD [address], [address], [place], [address] , [place] [facility] 3 15:21:12 Abdominal aortic aneurysm 928638997 Active 2022 Tobias saucedo MD [address], [address], [place], [address] , [facility] [facility] 3 15:21:19 Insomnia 818752264 Active 2022 Tobias saucedo MD [address], [address], [place], [address] , [facility] 3 15:22:09 Gastroesop hageal reflux disease without esophagiti s 507578702 Active 2022 Tobias saucedo MD [address], [address], [place], [address] , [facility] 3 15:24:09 Abdominal aortic ectasia 3406416200727 01 Active 2022 Tobias saucedo MD [address], [address], [place], [address] , [facility] 3 09:10:37 Low back pain 986943999 Active 2022 Ingrid wallis, [place] [facility] 3 14:36:13 Screening for osteoporos is Active 2022 Tobias saucedo MD [address], [address], [place], [address] , [employer] [facility] 3 11:44:39 Osteoporos is 16567239 Active 2022 Tobias saucedo MD [address], [address], [place], [address] , [employer] [facility] 3 11:46:26 Chronic kidney disease 120576790 Active 2022 Tobias saucedo MD [address], [address], [place], [address] , [employer] [facility] 3 11:17:46 Cerebrovas cular accident 267170071 Active 2023 Tobias saucedo MD [address], [address], [place], [address] , [employer] 4 16:20:21 Problem Notes None recorded. Procedures Surgical History Date Name Laterality Status Provider Name and Address Organization Details Recorded Time 04/21/20 24 Medicare Wellness CPT Code, subsequent completed Osman Cartagena LPN [place] [employer] [facility] 04/21/2024 08:03:45 04/21/20 24 Advanced Care Planning completed Osman Cartagena LPN [place] [employer] [facility] 04/21/2024 12:18:04 04/04/20 23 Medicare Wellness CPT Code, Initial completed Monae Bowman RN [facility] [employer] [facility] 04/04/2023 11:11:43 Foot Surgery completed Not Available [facility] 10/04/2022 23:32:35 Wrist arthroscopy/surg lizet completed Not Available [facility] 10/04/2022 23:32:35 laparoscopic sleeve gastrectomy completed Not Available [facility] 10/04/2022 23:32:35 Imaging Results None recorded. Procedure Notes None recorded. Medical Equipment None Reported. Allergies No known drug allergies Medications Name Sig Start Date Stop Date Status Note LastModified by Organization Details LastModified Time atorvastati n 40 mg tablet TAKE 1/2 TABLET (40 MG) BY ORAL ROUTE ONCE DAILY active Not Available Not Available No t Available levothyroxi ne 175 mcg tablet TAKE 1 TABLET BY MOUTH EVERY DAY 11/08 completed Not Available Not Available Not Available azithromyci n 250 mg tablet TAKE 2 TABLETS BY MOUTH TODAY, THEN TAKE 1 TABLET DAILY FOR 4 DAYS DIRECTED 11/13 completed Not Available Not Available Not Available cephalexin 250 mg capsule Take 1 capsule every 6 hours by oral route for 7 days. 07/20 completed Not Available Not Available Not Available hydrocodone 5 mg-acetamin ophen 325 mg tablet TAKE 1 TABLET BY MOUTH EVERY 8 HOURS NEEDED FOR PAIN 07/18 completed Not Available Not Available Not Available prazosin 1 mg capsule 07/23 completed Not Available Not Available Not Available lisinopril 20 mg tablet TAKE 1 TABLET BY MOUTH EVERY DAY 07/20 completed Not Available Not Available Not Available sertraline 100 mg tablet Take 1 tablet every day by oral route. active Not Available Not Available No t Available aspirin 81 mg tablet,mandi yed release TAKE 1 TABLET BY MOUTH DAILY active Not Available Not Available No t Available amoxicillin 500 mg tablet TAKE 1 TABLET BY MOUTH 3 TIMES DAILY FOR 7 DAYS 11/13 completed Not Available Not Available Not Available oxycodone-a cetaminophe n 5 mg-325 mg tablet TAKE 1 TABLET BY MOUTH EVERY 8 HOURS NEEDED FOR PAIN active Not Available Not Available No t Available trazodone 100 mg tablet 11/13 completed Not Available Not Available Not Available amlodipine 10 mg tablet Take 1 tablet every day by oral route. active Not Available Not Available No t Available erythromyci n 5 mg/gram (0.5 %) eye ointment 09/26 completed Not Available Not Available Not Available cyanocobala min (vit B-12) 1,000 mcg/mL injection solution Inject 1 mL every month by subcutane ous route. 2023 active Not Available Not Available Not Avai lable buspirone 10 mg tablet Take 1 tablet 3 times a day by oral route for 90 days. active Not Available Not Available No t Available levothyroxi ne 150 mcg tablet TAKE 1 TABLET BY MOUTH EVERY DAY 2024 active Not Available Not Available Not Avai lable omeprazole 20 mg capsule,del ayed release Take 1 capsule every day by oral route. 2021 active Not Available Not Available Not Avai lable ergocalcife rol (vitamin D2) 1,250 mcg (50,000 unit) capsule TAKE 1 CAPSULE EVERY WEEK BY ORAL ROUTE. 07/23 completed Not Available Not Available Not Available lisinopril 40 mg tablet TAKE 1 TABLET BY MOUTH EVERY DAY 2024 active Not Available Not Available Not Avai lable metronidazo le 0.75 % topical gel active Not Available Not Available Not Available doxycycline hyclate 100 mg tablet TAKE 1 TABLET BY MOUTH TWICE DAILY X 10 DAYS WITH FOOD 07/18 completed Not Available Not Available Not Available Refresh Liquigel 1 % eye liquid gel drops active Not Available Not Available Not Available tadalafil 5 mg tablet TAKE 1 TABLET 30 MINUTES PRIOR TO SEX NEEDED. GO TO ER IF ERECTION LASTS MORE THAN 2 HOURS. NO TO EXCEED MORE THAN 2 TABS A WEEK. 01/01 completed Not Available Not Available Not Available tadalafil 10 mg tablet TAKE 1/2 TABLET BY MOUTH BEFORE SEX UP TO TWICE PER WEEK.MUST LAST 3 MONTHS*ER IF ERECTION LASTS LONGER THAN 2 HOURS 2024 active Not Available Not Available Not Avai lable sodium fluoride 1.1 % dental cream active Not Available Not Available Not Available cholecalcif maurisio (vitamin D3) 1,250 mcg (50,000 unit) capsule TAKE 1 CAPSULE BY MOUTH ONE TIME PER WEEK 2023 active Not Available Not Available Not Avai lable sulfacetami de sodium 10 % topical cleanser active Not Available Not Available Not Available Anti-Itch (menthol-ca mphor) 0.5 %-0.5 % lotion 07/23 completed Not Available Not Available Not Available Vitals Date Recorded Body height Body mass index (BMI) Body weight Body temperature Heart rate Systolic blood pressure Diastolic blood pressure Provider Name and Address Organization Details Last Updated DateTime 3 172.72 cm 38 kg/m2 887149. 09 g 97.7 [degF] 72 /min 126 mm[Hg] 62 mm[Hg] MALORIE Baig [place] [employer] [facility] 3 11:06:37 Date Recorded Body height Body mass index (BMI) Body weight Body temperature Heart rate Systolic blood pressure Diastolic blood pressure Provider Name and Address Organization Details Last Updated DateTime 4 172.72 cm 39.1 kg/m2 853276. 24 g 97.7 [degF] 72 /min 140 mm[Hg] 68 mm[Hg] Regina Jasmine [facility] [employer] [facility] [employer] [facility] 4 11:38:45 Date Recorded Body height Body mass index (BMI) Body weight Oxygen saturation Oxygen saturation in Arterial blood by Pulse oximetry Body temperature Pain severity - 0-10 verbal numeric rating [Score] - Reported Systolic blood pressure Diastolic blood pressure Provider Name and Address Organization Details Last Updated DateTime 4 172.72 cm 39.8 kg/m2 490845. 2 g 96 % 96 % 97.5 [degF] 5 140 mm[Hg] 60 mm[Hg] Renee Mena [facility] [employer] [facility] 4 11:02:13 Date Recorded Heart rate Respiratory rate Provider N nav and Address Organization Details Last Updated DateTime 04/21/2024 74 /min 18 /min Osman Cartagena [facility] [employer] [facility] 04/21/2024 12:14:50 Date Recorded Body height Body mass index (BMI) Body weight Body temperature Heart rate Systolic blood pressure Diastolic blood pressure Provider Name and Address Organization Details Last Updated DateTime 4 172.72 cm 40.6 kg/m2 203665. 16 g 97.4 [degF] 60 /min 140 mm[Hg] 92 mm[Hg] Regina Jasmine [facility] [employer] [facility] 4 15:45:37 Date Recorded Body height Body mass index (BMI) Body weight Body temperature Heart rate Systolic blood pressure Diastolic blood pressure Provider Name and Address Organization Details Last Updated DateTime 5 172.72 cm 40 kg/m2 854950. 79 g 97.3 [degF] 60 /min 132 mm[Hg] 74 mm[Hg] Regina Jasmine [facility] [employer] [facility] 5 09:16:39 Social History Question Answer Notes LastModified by Organization Details LastModified Time Tobacco Smoking Status Former Smoker Not Available [facility] 10/04/2022 23:32:06 Do You Have An Advance Directive? No [email or web address].030 [id number] Information not available 10/04/2022 What Is Your Level Of Alcohol Consumption? None MIGRATION.030 [id number] Information not available 10/04/2022 Do You Wear A Helmet When Biking? No Does Not Bike [email or web address] Information not available 04/21/2024 Are You Blind Or Do You Have Difficulty Seeing? No MIGRATION.030 [id number] Information not available 10/04/2022 Is Blood Transfusion Acceptable In An Emergency? Yes Information not available 04/21/2024 What Is Your Level Of Caffeine Consumption? Heavy MIGRATION.030 [id number] Information not available 10/04/2022 In The 14 Days Before Symptom Onset, Have You Had Close Contact With A Laboratory-confi rmed COVID-19 While That Case Was Ill? No MIGRATION.030 [id number] Information not available 10/04/2022 In The 14 Days Before Symptom Onset, Have You Had Close Contact With A Person Who Is Under Investigation For COVID-19 While That Person Was Ill? No MIGRATION.030 [id number] Information not available 10/04/2022 Are You Currently Employed? No Information not available 04/21/2024 Are You Deaf Or Do You Have Serious Difficulty Hearing? Yes [facility] [email or web address] Information not available 04/21/2024 What Type Of Diet Are You Following? REGULAR MIGRATION.030 [id number] Information not available 10/04/2022 What Is The Highest Grade Or Level Of School You Have Completed Or The Highest Degree You Have Received? [id number] Information not available 10/04/2022 How Many Days Of Moderate To Strenuous Exercise, Like A Brisk Walk, Did You Do In The Last 7 Days? 0 Information not available 04/21/2024 Have There Been Any Changes To Your Family Or Social Situation? No MIGRATION.030 [id number] Information not available 10/04/2022 What Is The Fluoride Status Of Your Home? Unknown MIGRATION.030 210588 Information not available 10/04/2022 When Did You Quit Smoking? 17+yearssincelastc igarette MIGRATION.030 [id number] Information not available 10/04/2022 Are There Any Guns Present In Your Home? No MIGRATION.0301 [id number] Information not available 10/04/2022 Do You Use Insect Repellent Routinely? No MIGRATION.0301 [id number] Information not available 10/04/2022 Where Do You Live? [facility] MIGRATION.0301 [id number] Information not available 10/04/2022 Presence Of Domestic Violence No [email or web address] Information not available 04/04/2023 Guns Present In The Home? No [email or web address] Information not available 04/21/2024 Are You Able To Care For Yourself? Yes [email or web address] Information not available 04/04/2023 Are You Blind Or Do Yo Have Difficulty Seeing? No [email or web address] Information not available 04/04/2023 Are You Deaf Or Do You Have Serious Difficulty Hearing? Yes [facility] [email or web address] Information not available 04/21/2024 General Stress Level? High PTSD [email or web address] Information not available 04/21/2024 Live Alone Of With Others? With Others [email or web address] Information not available 04/04/2023 Do You Have A Medical Power Of Grease Packer? No MIGRATION.030 [id number] Information not available 10/04/2022 What Was The Date Of Your Most Recent Tobacco Screening? 09/10/2024 [email or web address] Information not available 09/10/2024 How Many Children Do You Have? 2 [email or web address] Information not available 04/21/2024 Do You Have Any Pets? Yes MIGRATION.0301 [id number] Information not available 10/04/2022 Do You Use Protection During Sex? No [email or web address] Information not available 04/21/2024 What Is Your Relationship Status? MIGRATION.030 [id number] Information not available 10/04/2022 Do You Use Your Seat Belt Or Car Seat Routinely? Yes MIGRATION.0301 [id number] Information not available 10/04/2022 Are You Sexually Active? Yes [email or web address] Information not available 04/21/2024 Do You Have Smoke And Carbon Monoxide Detectors In Your Home? Yes MIGRATION.0301 [id number] Information not available 10/04/2022 Are You Passively Exposed To Smoke? No MIGRATION.0301 035236 Information not available 10/04/2022 Are There Any Smokers In Your House? No MIGRATION.0301 613007 Information not available 10/04/2022 What Types Of Sporting Activities Do You Participate In? None [email or web address] Information not available 04/21/2024 Do You Feel Stressed (tense, Restless, Nervous, Or Anxious, Or Unable To Sleep At Night)? [id number] MIGRATION.0301 [id number] Information not available 10/04/2022 Do You Use Any Illicit Or Recreational Drugs? No MIGRATION.0301 [id number] Information not available 10/04/2022 Do You Use Sunscreen Routinely? Yes MIGRATION.0301 [id number] Information not available 10/04/2022 Has Tobacco Cessation Counseling Been Provided? No MIGRATION.0301 [id number] Information not available 10/04/2022 Have You Recently Traveled Abroad? No MIGRATION.0301 [id number] Information not available 10/04/2022 Do You Have Any Dietary Restrictions? No MIGRATION.0301 [id number] Information not available 10/04/2022 Do You Or Have You Ever Used Any Other Forms Of Tobacco Or Nicotine? No MIGRATION.0301 749187 Information not available 10/04/2022 Sex: Male Functional Status Question Answer Note LastModified by [employer] Details LastModified Time Do you have difficulty walking or climbing stairs? No MIGRATION.[id number] 026 Information not available 10/04/2022 Do you have transportation difficulties? No MIGRATION.[id number] 026 Information not available 10/04/2022 Are you able to walk? YESWOREST MIGRATION.[id number] 026 Information not available 10/04/2022 Do you have difficulty doing errands alone? No MIGRATION.8197614 026 Information not available 10/04/2022 Are you able to care for yourself? Yes MIGRATION.[id number] 026 Information not available 10/04/2022 Do you have difficulty dressing or bathing? No MIGRATION.[id number] 026 Information not available 10/04/2022 What is your exercise level? None [email or web address] Information not available 04/21/2024 Mental Status Question Answer Note LastModified by [employer] Details LastModified Time Do you have difficulty concentrating, remembering or making decisions? No MIGRATION.[id number] 6 Information not available 10/04/2022 Family History Relationship Description Onset Age of this Age Resolved Age Notes LastModified by Organization Details LastModified Time Mother Rheumatoid arthritis MIGRATION.346 [id number] Not available 10/04/2022 23:32:35 Medical History Condition Response NERVE DISEASE N BLINDNESS N RHEUMATIC FEVER N KIDNEY STONES N BLADDER PROBLEMS N MRSA N OTHER # 1 N POLIO N LUNG DISEASE/DISORDER N HISTORY OF DRUG ABUSE N RADIATION / CHEMOTHERAPY N COPD Y Other # 2 N BLOOD DISEASES N EAR OR HEARING PROBLEMS N MUMPS N SHINGLES N BOWEL PROBLEMS N DEPRESSION (INCLUDING POST ) Y STROKE/TIA N ULCERS N BENIGN PROSTATIC HYPERPLASIA N MEASLES N HYPOTENSION N MYOCARDIAL INFARCTION N OBESITY N GERD/NAUSEA Y ANEURYSM N URINARY/BLADDER/KIDNEY PROBLEMS N CORONARY ARTERY DISEASE (CAD) N ADDICTION CONCERNS N ENDOMETRIOSIS N Impotence N USE OF BLOOD THINNERS N SKIN PROBLEMS N GASTROINTESTINAL DISORDER N PERIPHERAL VASCULAR DISEASE N MUSCLE,JOINT OR BONE PROBLEMS N GASTROINTESTINAL BLEEDING N BLOOD CLOTS N ASTHMA N CATARACTS N ERECTILE DYSFUNCTION N VARICOSITIES N GI PROBLEMS N Low Testosterone N INFERTILITY N AIDS/HIV N CHEMOTHERAPY / RADIATION N LIVER DISEASE N MALE HYPOGONADISM N HYPERTENSION Y Deficiency Y TOURETTE'S N ANXIETY DISORDER N BLOOD TRANSFUSION N ANEMIA/BLOOD DISORDER N CHRONIC EAR INFECTIONS N BRONCHITIS N TUBERCULOSIS N GLAUCOMA N FOOT PROBLEM N DIVERTICULITIS N CHICKENPOX N SLEEP APNEA Y INFECTIOUS DISEASE N HEART ARRHYTHMIA N PROSTATE Y INSOMNIA Y HIGH CHOLESTEROL / HYPERLIPIDEMIA Y HYPERTHYROIDISM N EYE PROBLEMS N EDEMA N CHRONIC PAIN SYNDROME N HYPOTHYROIDISM Y CAROTID BLOCKAGE N CONSTIPATION N BACK / NECK PROBLEMS N ATHEROSCLEROSIS N BREAST PROBLEMS N DIALYSIS N ECZEMA N OSTEOPOROSIS N ARTHRITIS N APPENDICITIS N DIABETES, TYPE N BAD TEETH N ENT N HEARTBURN / REFLUX N AUTISM SPECTRUM DISORDER (ASD) N HEPATITIS / LIVER DISEASE N GOUT N SLEEP DISORDER N ALZHEIMER'S DISEASE N Brain Problems N HERPES N DEMENTIA N HEADACHES/MIGRAINES N SEIZURES/EPILEPSY N VASCULAR DISEASE N PACEMAKER N Blood Disorder N DIZZINESS N HEART DISEASE/HEART PROBLEMS N KIDNEY DISEASE N MULTIPLE SCLEROSIS N CARDIAC ARRHYTHMIA N CANCER: SPECIFY Y ATRIAL FIBRILLATION N Gall Stones N PULMONARY EMBOLISM N AUTOIMMUNE DISEASE N Immunizations Vaccine Type Date Status Note Provider Nam e and Address Organization Details Recorded Time COVID-19, mRNA, LNP-S, PF, 30 mcg/0.3 mL dose 1 completed ANABELLA Capps [facility] [employer] [facility] 04/18/2024 13:13:10 COVID-19, mRNA, LNP-S, PF, 30 mcg/0.3 mL dose 1 completed ANABELLA Capps, [facility] [employer] [facility] 04/18/2024 13:13:10 Influenza, high-dose, quadrivalent, PF 12/09/202 2 completed Not Available [facility] 10/04/2022 23:34:23 Td (adult), 2 Lf tetanus toxoid, preservative free, adsorbed 2 completed Not Available [facility] 10/04/2022 23:34:23 Pneumococcal conjugate PCV 13 2 completed Not Available [facility] 10/04/2022 23:34:24 Influenza, high-dose, quadrivalent, PF 2 completed Not Available [facility] 10/04/2022 23:34:24 pneumococcal polysaccharide PPV23 1 completed Monae Bowman RN [facility], [employer] 04/04/2023 10:59:27 Influenza, high-dose, quadrivalent, PF 3 completed Tobias Jensen MD [address] [place] [address], [place] [address], [place], [address], [employer] 07/18/2023 17:02:14 Past Encounters Encounter ID Performer Location Encounter Start Date Encounter Closed Date Diagnosis/Indication Diagnosis SNOMED-CT Code Diagnosis ICD10 Code Diagnosis Note [id number] [facility] Internal Med [place] [address] , [place] [address] 09/26/2021 00:00:00 09/26/2021 17:42:56 [id number] [facility] Internal Med [place] [address] , [place] [address] 12/21/2021 00:00:00 12/21/2021 11:16:46 [id number] [facility] Internal Med [place] [address] , [place] [address] 05/01/2022 00:00:00 05/01/2022 10:20:15 [id number] [facility] Internal Med [place] [address] [facility] y , [place] [address] 05/29/2022 00:00:00 05/29/2022 16:22:56 [id number] [facility] [address] [place] [address] 06/05/2022 00:00:00 06/05/2022 17:24:24 [id number] [facility] Internal Med [facility] [address] [facility] [address] [place] [address] 07/20/2022 00:00:00 07/20/2022 10:46:34 [id number] Tobias saucedo MD [facility] Internal Med [facility] [address] [facility] , [facility] [address] 11/08/2022 11:14:34 11/08/2022 13:20:47 Screening - NAD 583310060 Z13.9 C-scope: Get this done, but he and his has declined this 11/08/2022 and also the EGD Get yearly flu shotGet tdap if not doneGet shingrixUT D on COVID 19 vaccineUTD on PCV #13 08/26/2021 DMV form filled for handicap parking 12/21/2021 RTC in 4 monthsDo labsER if worseHe and his did verbalize his understand ing of the above Hyperlipidemia 48532233 E78.5 On atorvastat in [facility]mg [facility] 11/07[facility]2022 Get labs Hypothyroidism 23307201 E03.9 On levothyrox ine 150mcgs daily [facility] , done on 11/07/2022 Get labsGet US thyroid done Gastroesop hageal reflux disease without esophagitis 957612970 K21.9 On omeprazole 20mg daily, advised to take PRNShould get EGD done Moderate r ecurrent major depression 38782287 F33.1 On buspirone 10mg tidOn sertraline 100mg dailyNot suicidal or homicidalR efer to psychiatry Vitamin D deficiency 347 67046 E55.9 Former hea vy tobacco smoker 1344497857 82787 Z87.[address] chest done Cough 14062593 R05.9 Does have intermitte nt cough, Get CT chest Xr chest 06/26/2022 : Neg, see case 06/28/2022 , get CT chest Erythrocytosis 269509625 D75.[address] Parsons Now sees Dr Silvino Espinosa in [place] Chronic ob structive pulmonary disease 47476962 J44.9 As per cardiology Needs to see pulmonary Essential hypertension 74850999 I10 On amlodipine 10mg dailyOn lisinopril 40mg daily Does wellGet labs Dr Mijares 12/01/2021 , f/u in 3 monthsDr Fatoumatatee Villavicencio 03/22/2022 As per his note ECHO 10/10/2021 : EF 66%, myoview: no ischemia/i nfarction Chronic pain 96137217 G8 9.29 On hydrocodon e 5mg q 8 hrs Given by pain management Dr Brian Genao Seen by Dr Veto Barboza last OV 07/04/2022 , was sent to ER for low HR Insomnia 087205128 G47.0 0 On trazodone 100mg daily, but not taking thisTake as needed! Obstructiv e sleep apnea syndrome 16139082 G47.33 As per cardiology note on 12/01/2021 Abdominal aortic ectasia 0669166316 23534 I77.811 Seen by US done by Dr Dubois hemattheron st, referred to Dr Doug Landis 01/11/2022 , s/p surgery by Dr Shahbaz Warren , Monae Werner, TRANSMITTER SUPERVISOR - 03/02/2022 , with Dr Arevalo, advised to f/u in one year now Erectile dysfunction 860 728303 F52.21 Requests tadalafil, renewed 07/20/2022 Serum chacorta min B12 below reference range 027810954 R79.89 History of gastric bypass S/p B12 injections Needs to see hematologi st but he has refused to do so, wants to get this checked with this officeGet labs [id number] Tobias saucedo MD [facility] [place] [address] [facility] [place] [address] 04/04/2023 10:41:46 04/04/2023 11:51:28 Screening - NAD 200605141 Z13.9 C-scope: Get this done, but he and his has declined this 11/08/2022 and also the EGD Get yearly flu shotGet tdap if not doneGet shingrixUT D on COVID 19 vaccineUTD on PCV #13 08/26/2021 DMV form filled for handicap parking 12/21/2021 RTC in 4 monthsDo labsER if worseHe and his did verbalize his understand ing of the above Hyperlipidemia 80358531 E78.5 On atorvastat in 40mg tab daily [facility] his on 11/07/2022 Get labs Hypothyroidism 24803478 E03.9 On levothyrox ine 150mcgs daily [facility] by [facility] as [facility] , done on 11/07/2022 Get labsGet US thyroid done Gastroesop hageal reflux disease without esophagitis 525833390 K21.9 On omeprazole 20mg daily, advised to take PRN Should get EGD done Moderate r ecurrent major depression 88236783 F33.1 On buspirone 10mg tidOn sertraline 100mg dailyNot suicidal or homicidalR efer to psychiatry Vitamin D deficiency 347 23842 E55.9 Former hea vy tobacco smoker 4225176502 99429 Z87.891 [address]uit [address] chest done Cough 90959541 R05.9 Does have intermitte nt cough, Get CT chest Xr chest 06/26/2022 : Neg, see case 06/28/2022 , get CT chest Erythrocytosis 447200125 D75.[address] Parsons Now sees Dr Silvino Espinosa in [place] Chronic ob structive pulmonary disease 63778057 J44.9 As per cardiology Needs to see pulmonary Essential hypertension 04231397 I10 On amlodipine 10mg dailyOn lisinopril 40mg daily Does wellGet labs Dr Mijares 12/01/2021 , f/u in 3 monthsDr Fatoumata Villavicencio 03/22/2022 As per his note ECHO 10/10/2021 : EF 66%, myoview: no ischemia/i nfarction Chronic pain 60733539 G8 9.29 On hydrocodon e 5mg q 8 hrs Given by pain management Dr Brian Genao Seen by Dr Veto Barboza last OV 07/04/2022 , was sent to ER for low HR Insomnia 791752705 G47.0 0 On trazodone 100mg daily, but not taking this Take as needed! Obstructiv e sleep apnea syndrome 95738614 G47.33 As per cardiology note on 12/01/2021 Abdominal aortic ectasia 8310458588 41598 I77.811 Seen by US done by Dr Silvino solomon, referred to Dr Doug Landis 01/11/2022 , s/p surgery by Dr Shahbaz Thurman, Monae Werner, TRANSMITTER SUPERVISOR - 03/02/2022 , with Dr Arevalo, advised to f/u in one year now Erectile dysfunction 860 689719 F52.21 Requests tadalafil, renewed 07/20/2022 Serum chacorta min B12 below reference range 728576180 R79.89 History of gastric bypass S/p B12 injections Needs to see rachel solomon but he has refused to do so, wants to get this checked with this officeGet labs Low back pain 259170457 M54.50 XR L Spine: 04/02/2023 : Chronic fracture at T12Get a referral to pain management Adult [facility] examination 271472335 Z00.00 Screening for disorder 559039758 Z13.9 Screening for osteoporosis 952080867 Z13.820 Osteoporosis 53082058 M8 1.0 Get a DEXA done [id number] Tobias saucedo MD [facility] Internal Med [place] [address] [place] [address] [place] [address] 07/18/2023 10:47:19 07/18/2023 11:58:52 Screening - NAD 619461478 Z13.9 C-scope: Get this done, but he and his has declined this 11/08/2022 and also the EGD Get yearly flu shotGet tdap if not doneGet shingrixUT D on COVID 19 vaccineUTD on PCV #13 08/26/2021 Get RSV vaccine DMV form filled for handicap parking 12/21/2021 RTC in 4 monthsDo labsER if worseHe and his did verbalize his understand ing of the above Hyperlipidemia 73973437 E78.5 On atorvastat in 40mg tab daily [facility] by [facility] as [facility] his on 11/07/2022 Get labs Hypothyroidism 49998936 E03.9 On levothyrox ine 150mcgs daily [facility] by [facility] as [facility] his , done on 11/07/2022 Get labsGet US thyroid done Gastroesop hageal reflux disease without esophagitis 500043591 K21.9 On omeprazole 20mg daily, advised to take PRN Should get EGD done Moderate r ecurrent major depression 66514484 F33.1 On buspirone 10mg tidOn sertraline 100mg dailyNot suicidal or homicidalR efer to psychiatry Vitamin D deficiency 347 85121 E55.9 Former hea vy tobacco smoker 8945528936 76489 Z87.891 [address]uit [address] chest done Cough 13830529 R05.9 Does have intermitte nt cough, Get CT chest Xr chest 06/26/2022 : Neg, see case 06/28/2022 , get CT chest Erythrocytosis 481304371 D75.[address] Parsons Now sees Dr Silvino Espinosa in [place] Chronic ob structive pulmonary disease 31293294 J44.9 As per cardiology Needs to see pulmonary Essential hypertension 04677015 I10 On amlodipine 10mg dailyOn lisinopril 40mg daily Does wellGet labs Dr Mijares 12/01/2021 , f/u in 3 monthsDr Fatoumata Villavicencio 03/22/2022 As per his note ECHO 10/10/2021 : EF 66%, myoview: no ischemia/i nfarction Chronic pain 66384600 G8 9.29 On hydrocodon e 5mg q 8 hrsOn oxycodone 5mg-325mg tid Given by pain management Dr Brian Genao Seen by Dr Veto Barboza last OV 07/04/2022 , was sent to ER for low HR Insomnia 505682771 G47.0 0 On trazodone 100mg daily, but not taking this Take as needed! Obstructiv e sleep apnea syndrome 94633665 G47.33 As per cardiology note on 12/01/2021 Abdominal aortic ectasia 3164301040 00524 I77.811 Seen by US done by Dr Dubois hematologelvis , referred to Dr Doug Landis 01/11/2022 , s/p surgery by Dr Shahbaz Thurman, Monae Werner, TRANSMITTER SUPERVISOR - 03/02/2022 , with Dr Arevalo, advised to f/u in one year Seble Villavicencio MD 01/23/2023 Erectile dysfunction 860 206158 F52.21 On tadalafil Serum chacorta min B12 below reference range 931693068 R79.89 History of gastric bypass S/p B12 injections Needs to see hematologi st but he has refused to do so, wants to get this checked with this officeGet labs Low back pain 685618599 M54.50 XR L Spine: 04/02/2023 : Chronic fracture at T12Get a referral to pain management MRI L spine: 05/04/2023 Seen by BRIAN Jaramillo [employer]IL WELL LOGGING ENGINEER 05/11/2023 , f/u PRN Osteoporosis 40756561 M8 1.0 Get a DEXA done Chronic ki dney disease 061305793 N18.9 Get a referral to nephrology Administra tion of influenza vaccine 11074713 Z23 [id number] Tobias saucedo MD [facility] [place] [address] [facility] , [facility] [place] [address] 11/14/2023 11:14:55 11/14/2023 12:21:23 Screening - NAD 109713596 Z13.9 C-scope: Get this done, but he and his has declined this 11/08/2022 and also the EGD Get yearly flu shotGet tdap if not doneGet shingrixUT D on COVID 19 vaccineUTD on PCV #13 08/26/2021 Get RSV vaccine DMV form filled for handicap parking 12/21/2021 RTC in 4 monthsDo labsER if worseHe and his did verbalize his understand ing of the above Hyperlipidemia 09828709 E78.5 On atorvastat in 40mg 1/2 tab dailyGet labs Hypothyroidism 38730150 E03.9 On levothyrox ine 150mcgs dailyGet labsGet US thyroid done Gastroesop hageal reflux disease without esophagitis 600661219 K21.9 On omeprazole 20mg daily, advised to take PRN Should get EGD done Moderate r ecurrent major depression 72718040 F33.1 On buspirone 10mg tidOn sertraline 100mg dailyNot suicidal or homicidalR efer to psychiatry Vitamin D deficiency 347 82957 E55.9 Get on vit d weekly, get labs Former hea vy tobacco smoker 4117340968 24396 Z87.891 [address]uit [address] chest done Cough 18472799 R05.9 Does have intermitte nt cough, Get CT chest Xr chest 06/26/2022 : Neg, see case 06/28/2022 , get CT chest Erythrocytosis 646628182 D75.[address] Parsons Now sees Dr Silvino Espinosa in [place] Chronic ob structive pulmonary disease 26991049 J44.9 As per cardiology Needs to see pulmonary Essential hypertension 21334308 I10 On amlodipine 10mg dailyOn lisinopril 40mg daily Does wellGet labs Dr Mijares 12/01/2021 , f/u in 3 monthsDr Fatoumata Villavicencio 03/22/2022 As per his note ECHO 10/10/2021 : EF 66%, myoview: no ischemia/i nfarction Chronic pain 12814819 G8 9.29 On hydrocodon e 5mg q 8 hrsOn oxycodone 5mg-325mg tid Given by pain management Dr Brian Genao Seen by Dr Veto Barboza last OV 07/04/2022 , was sent to ER for low HR Insomnia 729844910 G47.0 0 On trazodone 100mg daily, but not taking this Take as needed! Obstructiv e sleep apnea syndrome 86800404 G47.33 As per cardiology note on 12/01/2021 Abdominal aortic ectasia 7226704833 11468 I77.811 Seen by US done by Dr Silvino sloomon, referred to Dr Doug Landis 01/11/2022 , s/p surgery by Dr Shahbaz Thurman, Monae Werner, TRANSMITTER SUPERVISOR - 03/02/2022 , with Dr Arevalo, advised to f/u in one year nowDr Fatoumata Villavicencio MD 01/23/2023 Erectile dysfunction 860 696193 F52.21 On tadalafil Serum chacorta min B12 below reference range 883145747 R79.89 History of gastric bypass S/p B12 injections Needs to see hematologelvis st but he has refused to do so, wants to get this checked with this officeGet labs Low back pain 189652656 M54.50 XR L Spine: 04/02/2023 : Chronic fracture at T12Get a referral to pain management MRI L spine: 05/04/2023 Seen by BRIAN Jaramillo [employer]ING ENGINEER 05/11/2023 , f/u PRN Osteoporosis 24292366 M8 1.0 Get a DEXA done Chronic ki dney disease 408918550 N18.9 Get a referral to nephrology [id number] Tobias saucedo MD [facility] [place] [address] [facility] [address] 04/21/2024 10:53:26 04/21/2024 11:57:44 Screening - NAD 228682976 Z13.9 C-scope: Get this done, but he and his has declined this 11/08/2022 and also the EGD Get yearly flu shotGet tdap if not doneGet shingrixUT D on COVID 19 vaccineUTD on PCV #13 08/26/2021 Get RSV vaccine DMV form filled for handicap parking 12/21/2021 RTC in 4 monthsDo labsER if worseHe and his did verbalize his understand ing of the above Hyperlipidemia 03050765 E78.5 On atorvastat in 40mg 1/2 tab dailyGet labs Hypothyroidism 92809480 E03.9 On levothyrox ine 150mcgs dailyGet labsGet US thyroid done Gastroesop hageal reflux disease without esophagitis 108548665 K21.9 On omeprazole 20mg daily, advised to take PRN Should get EGD done Moderate r ecurrent major depression 67835699 F33.1 On buspirone 10mg tidOn sertraline 100mg dailyNot suicidal or homicidalR efer to psychiatry Vitamin D deficiency 347 91751 E55.9 Get on vit d weekly, get labs Former hea vy tobacco smoker 6028777542 23172 Z87.891 [address]uit [address] chest done Cough 82370659 R05.9 Does have intermitte nt cough, Get CT chest Xr chest 06/26/2022 : Neg, see case 06/28/2022 , get CT chest Erythrocytosis 415371553 D75.[address] Parsons Now sees Dr Silvino Espinosa in [place] Chronic ob structive pulmonary disease 29708522 J44.9 As per cardiology Needs to see pulmonary Essential hypertension 59060340 I10 On amlodipine 10mg dailyOn lisinopril 40mg daily Does wellGet labs Dr Mijares 12/01/2021 , f/u in 3 monthsDr Fatoumata Villavicencio 03/22/2022 As per his note ECHO 10/10/2021 : EF 66%, myoview: no ischemia/i nfarction Chronic pain 37797368 G8 9.29 On hydrocodon e 5mg q 8 hrsOn oxycodone 5mg-325mg tid Given by pain management Dr Brian Genao Seen by Dr Veto Barboza last OV 07/04/2022 , was sent to ER for low HR Insomnia 509220988 G47.0 0 On trazodone 100mg daily, but not taking this Take as needed! Obstructiv e sleep apnea syndrome 94548126 G47.33 As per cardiology note on 12/01/2021 Abdominal aortic ectasia 7234473971 01083 I77.811 Seen by US done by Dr Dubois hemattheron st, referred to Dr Doug Landis 01/11/2022 , s/p surgery by Dr Shahbaz Thurman, Monae Werner, TRANSMITTER SUPERVISOR - 03/02/2022 , with Dr Arevalo, advised to f/u in one year nowDr Fatoumata Villavicencio MD 01/23/2023 Erectile dysfunction 860 306660 F52.21 On tadalafil Serum chacorta min B12 below reference range 515579917 R79.89 History of gastric bypass S/p B12 injections Needs to see hematologi st but he has refused to do so, wants to get this checked with this officeGet labs Low back pain 609942718 M54.50 XR L Spine: 04/02/2023 : Chronic fracture at T12Get a referral to pain management MRI L spine: 05/04/2023 Seen by BRIAN Jaramillo [employer] ENGINEER 05/11/2023 , f/u PRN Osteoporosis 05379323 M8 1.0 Get a DEXA done Chronic ki dney disease 792811050 N18.9 Get a referral to nephrology Adult [facility] examination 306585527 Z00.00 Screening for disorder 745108589 Z13.9 [id number] Tobias saucedo MD [facility] [place] [address] [facility] [address] [place] [address] 07/23/2024 15:32:39 07/23/2024 16:40:31 Screening - NAD 324763646 Z13.9 C-scope: Get this done, but he and his has declined this 11/08/2022 , 07/23/2024 and also the EGD Get yearly flu shotGet tdap if not doneGet shingrixUT D on COVID 19 vaccineUTD on PCV #13 08/26/2021 Get RSV vaccine DMV form filled for handicap parking 12/21/2021 RTC in 4 monthsDo labsER if worseHe and his did verbalize his understand ing of the above 45 minutes spent with the patient and his , labs ordered, chart updated Hyperlipidemia 50235387 E78.5 On ASAOn atorvastat in 40mg 1/2 tab dailyGet labs Hypothyroidism 44104694 E03.9 On levothyrox ine 150mcgs dailyGet labsGet US thyroid done Gastroesop hageal reflux disease without esophagitis 251526890 K21.9 On omeprazole 20mg daily, advised to take PRN Should get EGD done Moderate r ecurrent major depression 96692247 F33.1 On buspirone 10mg tidOn sertraline 100mg dailyNot suicidal or homicidalR efer to psychiatry Vitamin D deficiency 347 14582 E55.9 Get on vit d weekly, get labs Former hea vy tobacco smoker 0360324013 39186 Z87.891 [address]uit [address] chest done Cough 68899099 R05.9 Does have intermitte nt cough, Get CT chest Xr chest 06/26/2022 : Neg, see case 06/28/2022 , get CT chest Erythrocytosis 682598128 D75.[address] Parsons Now sees Dr Silvino Espinosa in [place] Chronic ob structive pulmonary disease 23783986 J44.9 As per cardiology Needs to see pulmonary Essential hypertension 79418780 I10 On amlodipine 10mg dailyOn lisinopril 40mg daily Does wellGet labs Dr Mijares 12/01/2021 , f/u in 3 monthsDr Fatoumata Villavicencio 03/22/2022 As per his note ECHO 10/10/2021 : EF 66%, myoview: no ischemia/i nfarction Chronic pain 96160856 G8 9.29 Not on hydrocodon e 5mg q 8 hrsOn oxycodone 5mg-325mg tid Given by pain management Dr Brian Genao Seen by Dr Veto Barboza last OV 07/04/2022 , was sent to ER for low HR Insomnia 811009926 G47.0 0 On trazodone 100mg daily, but not taking this Take as needed! Obstructiv e sleep apnea syndrome 75611939 G47.33 As per cardiology note on 12/01/2021 Abdominal aortic ectasia 2580240018 03764 I77.811 Seen by US done by Dr Dubois hemattheron solomon, referred to Dr Doug Landis 01/11/2022 , s/p surgery by Dr Shahbaz Thurman, Monae Werner, TRANSMITTER SUPERVISOR - 03/02/2022 , with Dr Arevalo, advised to f/u in one year nowDr Fatoumata Villavicencio MD 01/23/2023 Erectile dysfunction 860 975832 F52.21 On tadalafil Serum chacorta min B12 below reference range 850027255 R79.89 History of gastric bypass S/p B12 injections Needs to see rachel solomon but he has refused to do so, wants to get this checked with this officeGet labs Low back pain 457795269 M54.50 XR L Spine: 04/02/2023 : Chronic fracture at T12Get a referral to pain management MRI L spine: 05/04/2023 Seen by BRIAN Jaramillo [employer] ENGINEER 05/11/2023 , f/u PRN Osteoporosis 83702024 M8 1.0 Get a DEXA done Chronic ki dney disease 916854654 N18.9 Get a referral to nephrology 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 Occurred at home, last week, dysarthria , 911 called, BP was elevated, as per he was not taking his thyroid and the lisinopril , now 07/23/2024 is taking thisDid go to ER [facility] doing well [id number] Tobias saucedo MD [facility] [place] [address] [facility] [address] [place] [address] 09/10/2024 08:46:01 09/10/2024 10:15:03 Screening - NAD 377210441 Z13.9 C-scope: Get this done, but he and his has declined this 11/08/2022 , 07/23/2024 and also the EGD Get yearly flu shotGet tdap if not doneGet shingrixUT D on COVID 19 vaccineUTD on PCV #13 08/26/2021 Get RSV vaccine DMV form filled for handicap parking 12/21/2021 RTC in 4 monthsDo labsER if worseHe and his did verbalize his understand ing of the above 45 minutes spent with the patient and his , labs ordered, chart updated, also called and discussed with Dr Mejia cardiology , referral placed Hyperlipidemia 16385185 E78.5 On ASAOn atorvastat in 40mg 1/2 tab dailyGet labs Hypothyroidism 77806868 E03.9 On levothyrox ine 150mcgs dailyGet labsGet US thyroid done Gastroesop hageal reflux disease without esophagitis 507584847 K21.9 On omeprazole 20mg daily, advised to take PRN Should get EGD done Moderate r ecurrent major depression 04716367 F33.1 On buspirone 10mg tidOn sertraline 100mg dailyNot suicidal or homicidalR eferred to psychiatry Vitamin D deficiency 347 23727 E55.9 Get on vit d weekly, get labs Former hea vy tobacco smoker 8789826481 07750 Z87.891 [address]uit [address] chest done Cough 86195491 R05.9 Does have intermitte nt cough, Get CT chest Xr chest 06/26/2022 : Neg, see case 06/28/2022 , get CT chest, this was ordered last OV too Erythrocytosis 863297558 D75.[address] Parsons Now sees Dr Silvino Espinosa in [place] Chronic ob structive pulmonary disease 99895958 J44.9 As per cardiology Needs to see pulmonary Essential hypertension 76956386 I10 On amlodipine 10mg dailyOn lisinopril 40mg daily Does wellGet labs Dr Mijares 12/01/2021 , f/u in 3 monthsDr Fatoumata Villavciencio 03/22/2022 , 01/21/2024 As per his note ECHO 10/10/2021 : EF 66%, myoview: no ischemia/i nfarction Chronic pain 48155989 G8 9.29 Not on hydrocodon e 5mg q 8 hrsOn oxycodone 5mg-325mg tid refilled on 07/14/2024 Dr Genao Given by pain management Dr Brian Genao Seen by Dr Veto Barboza last OV 07/04/2022 , was sent to ER for low HR Insomnia 935452507 G47.0 0 On trazodone 100mg daily, but not taking this Take as needed! Obstructiv e sleep apnea syndrome 54786934 G47.33 As per cardiology note on 12/01/2021 Abdominal aortic ectasia 3600505262 48301 I77.811 Seen by US done by Dr Dubois hematologi st, referred to Dr Doug Landis 01/11/2022 , s/p surgery by Dr Shahbaz Thurman, Monae Werner, TRANSMITTER SUPERVISOR - 03/02/2022 , with Dr Arevalo, advised to f/u in one year nowDr Fatoumata Villavicencio MD, referred 09/10/2024 Erectile dysfunction 860 243187 F52.21 On tadalafil, renewed 09/05/2024 , understand s all the side effects explained that he should notify his cardiologi st that he is taking this medication Serum chacorta min B12 below reference range 189084458 R79.89 History of gastric bypass S/p B12 injections Needs to see hematologi st but he has refused to do so, wants to get this checked with this officeGet labs Low back pain 787844229 M54.50 XR L Spine: 04/02/2023 : Chronic fracture at T12Get a referral to pain management MRI L spine: 05/04/2023 Seen by BRIAN Jaramillo [employer] ENG[employer]ER 05/11/2023 , f/u PRN Osteoporosis 34210394 M8 1.0 Get a DEXA done Chronic ki dney disease 653657640 N18.9 Get a referral to nephrology Cerebrovas cular accident [id number] I63.9 Occurred at home, dysarthria , 911 called, BP was elevated, as per he was not taking his thyroid and the lisinopril , now 07/23/2024 is taking thisDid go to [facility] doing wellRefer to neurology Health Concerns Section Related Observation LastModified by Organization Detai ls LastModified Time None Recorded Concern Status LastModified by Organization Details LastModified Time None Recorded Advance Directives Directive N: Payers Encounter Date Sequence Insurance Name Policy Number Policy Drake Covered Member ID Drake Member ID Guarantor Name 07/18/2023 1 [facility] (MEDICARE REPLACEMENT/A DVANTAGE - HMO) [id number] Donnie Morocho [id number] Donnie Morocho 11/14/2023 1 [facility] (MEDICARE REPLACEMENT/A DVANTAGE - HMO) [id number] Donnie Morocho [id number] Donnie Morocho 04/21/2024 1 [facility] (MEDICARE REPLACEMENT/A DVANTAGE - HMO) [id number] Donnie Morocho [id number] Donnie Morocho 07/23/2024 1 [facility] (MEDICARE REPLACEMENT/A DVANTAGE - HMO) [id number] Donnie Morocho [id number] Donnie Morocho 09/10/2024 1 [facility] (MEDICARE REPLACEMENT/A DVANTAGE - HMO) [id number] Donnie Morocho [id number] Donnie Morocho Notes Date Note Type Note Provider Name and Address Organization Details Recorded Time 07/18/2023 text/html OV 09/26/2021:He re to establish carePast Hx:HTNGERDHLDHypothy roidismDepressionRev iewed social familly and surgical historyWants to discuss aboveGet labsOV 12/21/2021:Here for his routine aptHe is here with his wifeHe feels well, he did see Dr Mijares the cardiologistOV 05/01/2022:Here for his f/u apt, he feels well, he did do the labs on 04/20/2022He states that he did have his AAA repair done in [facility] by Dr Luna 05/29/2022:ACV:C/o wound on the L breast, states it is a 'spider bite', seen in the ER at [facility] on Sunday, treated with steroids, but still has a wound, no fevers or chills, no d/c, is keeping it clean and dryOV 07/20/2022:Here for his f/u apt, he is doing well, no recent labs noted OV 11/08/2022:Tele visitHe is agreeable to do this visit, history is with his as he is a poor historian, he did do the labs OV 04/04/2023: Here for his f/u apt, doing well, he did do the labs and is here with his OV 07/18/2023: Here for his f/u apt,he is doing well today, here with his , he did do the labs Tobias Jensen MD [address], [place], [address], [facility] Individual Digital [facility] 07/18/2023 17:02:36 11/14/2023 text/html OV 09/26/2021:He re to establish carePast Hx:HTNGERDHLDHypothy roidismDepressionRev iewed social familly and surgical historyWants to discuss aboveGet labsOV 12/21/2021:Here for his routine aptHe is here with his wifeHe feels well, he did see Dr Mijares the cardiologistOV 05/01/2022:Here for his f/u apt, he feels well, he did do the labs on 04/20/2022He states that he did have his AAA repair done in [facility] by Dr Luna 05/29/2022:ACV:C/o wound on the L breast, states it is a 'spider bite', seen in the ER at [facility] on Sunday, treated with steroids, but still has a wound, no fevers or chills, no d/c, is keeping it clean and dryOV 07/20/2022:Here for his f/u apt, he is doing well, no recent labs noted OV 11/08/2022:Tele visitHe is agreeable to do this visit, history is with his as he is a poor historian, he did do the labs OV 04/04/2023: Here for his f/u apt, doing well, he did do the labs and is here with his OV 07/18/2023: Here for his f/u apt,he is doing well today, here with his , he did do the labs OV 11/14/2023: Here for his routine apt, he feels well today, he is here with his Tobias Jensen MD [address], [place], [address], [facility] 11/14/2023 16:36:58 04/21/2024 text/html OV 09/26/2021:He re to establish carePast Hx:HTNGERDHLDHypothy roidismDepressionRev iewed social familly and surgical historyWants to discuss aboveGet labsOV 12/21/2021:Here for his routine aptHe is here with his wifeHe feels well, he did see Dr Mijares the cardiologistOV 05/01/2022:Here for his f/u apt, he feels well, he did do the labs on 04/20/2022He states that he did have his AAA repair done in [facility] by Dr Luna 05/29/2022:ACV:C/o wound on the L breast, states it is a 'spider bite', seen in the ER at [facility] on Sunday, treated with steroids, but still has a wound, no fevers or chills, no d/c, is keeping it clean and dryOV 07/20/2022:Here for his f/u apt, he is doing well, no recent labs noted OV 11/08/2022:Tele visitHe is agreeable to do this visit, history is with his as he is a poor historian, he did do the labs OV 04/04/2023: Here for his f/u apt, doing well, he did do the labs and is here with his OV 07/18/2023: Here for his f/u apt,he is doing well today, here with his , he did do the labs OV 11/14/2023: Here for his routine apt, he feels well today, he is here with his OV 04/21/2024: Here for his f/u apt, he is doing well today, he is here with his , he is here for his MWV Tobias Jensen MD [address], [place], [address], [place] [facility] 04/21/2024 17:37:33 07/23/2024 text/html OV 09/26/2021:He re to establish carePast Hx:HTNGERDHLDHypothy roidismDepressionRev iewed social familly and surgical historyWants to discuss aboveGet labsOV 12/21/2021:Here for his routine aptHe is here with his wifeHe feels well, he did see Dr Mijares the cardiologistOV 05/01/2022:Here for his f/u apt, he feels well, he did do the labs on 04/20/2022He states that he did have his AAA repair done in [facility] by Dr Luna 05/29/2022:ACV:C/o wound on the L breast, states it is a 'spider bite', seen in the ER at [facility] on Sunday, treated with steroids, but still has a wound, no fevers or chills, no d/c, is keeping it clean and dryOV 07/20/2022:Here for his f/u apt, he is doing well, no recent labs noted OV 11/08/2022:Tele visitHe is agreeable to do this visit, history is with his as he is a poor historian, he did do the labs OV 04/04/2023: Here for his f/u apt, doing well, he did do the labs and is here with his OV 07/18/2023: Here for his f/u apt,he is doing well today, here with his , he did do the labs OV 11/14/2023: Here for his routine apt, he feels well today, he is here with his OV 04/21/2024: Here for his f/u apt, he is doing well today, he is here with his , he is here for his MWV OV 07/23/2024: Here for his f/u apt, he is here with his ,did do the labs 07/22/2024, not reported Tobias Jensen MD [address], [facility] [address], [place], [address], [place] [facility] 07/25/2024 21:37:51 09/10/2024 text/html OV 09/26/2021:He re to establish carePast Hx:HTNGERDHLDHypothy roidismDepressionRev iewed social familly and surgical historyWants to discuss aboveGet labsOV 12/21/2021:Here for his routine aptHe is here with his wifeHe feels well, he did see Dr Mijares the cardiologistOV 05/01/2022:Here for his f/u apt, he feels well, he did do the labs on 04/20/2022He states that he did have his AAA repair done in [facility] by Dr Luna 05/29/2022:ACV:C/o wound on the L breast, states it is a 'spider bite', seen in the ER at [facility] on Sunday, treated with steroids, but still has a wound, no fevers or chills, no d/c, is keeping it clean and dryOV 07/20/2022:Here for his f/u apt, he is doing well, no recent labs noted OV 11/08/2022:Tele visitHe is agreeable to do this visit, history is with his as he is a poor historian, he did do the labs OV 04/04/2023: Here for his f/u apt, doing well, he did do the labs and is here with his OV 07/18/2023: Here for his f/u apt,he is doing well today, here with his , he did do the labs OV 11/14/2023: Here for his routine apt, he feels well today, he is here with his OV 04/21/2024: Here for his f/u apt, he is doing well today, he is here with his , he is here for his MWV OV 07/23/2024: Here for his f/u apt, he is here with his ,did do the labs 07/22/2024, not reported OV 09/10/2024: Here for his f/u apt with his , he feels well today Tobias Jensen MD [address] [place] [address] [place], [facility] [address], [place], [address], [place] [facility] 09/10/2024 10:28:23
--- OUTSIDE RECORDS SUMMARY | 2024-10-21 16:24 | XMS_ITS | Referral Summary ---
Author Organization [facility] Address [address] [place] [address] Care Team Providers Care Wrecking Supervisor Name Role Phone Gama Jensen MD Primary Care Provide r Trevor Lacy MD, Edis Unavailable + [phone] Veto Barboza PURCHASING MANAGER/SALES Unavailable [phone] Encounters Date Type Department Care Team Description 09/08/2024 9:46 AM MANAGER CONTACT - 09/08/2024 11:59 PM MANAGER CONTACT Hospital Encounter [facility] [address] [place], [place] [id number] Veto Barboza NP Radiculopathy, lumbosacral region (Primary Dx); Spinal stenosis of lumbar region without neurogenic claudication Discharge Disposition: Discharge to home or self care from Last 3 Months Allergies No known active allergies Medications levothyroxine (SYNTHROID, LEVOTHROID) 175 mcg tablet Take 1 tablet (175 mcg total) by mouth daily Active omeprazole OTC (PriLOSEC OTC) 20 mg EC tablet Take 1 tablet (20 mg total) by mouth daily Active busPIRone (BUSPAR) 10 mg tabletIndicatio ns:Generalized Anxiety Disorder Take 1 tablet (10 mg total) by mouth 3 (three) times a day Active sertraline (ZOLOFT) 100 mg tablet Take 1 tablet (100 mg total) by mouth daily Active lisinopril (PRINIVIL,ZESTR IL) 20 mg tablet Take 1 tablet (20 mg total) by mouth daily Active cyanocobalamin (Vitamin B-12) 1,000 mcg/mL injection 09/22/2019 Active traZODone (DESYREL) 100 mg tablet Take 1 tablet (100 mg total) by mouth nightly 09/24/2019 Active atorvastatin (LIPITOR) 40 mg tablet Take 1 tablet (40 mg total) by mouth daily Patient says that he is only taking 0.5 tab po daily Active amLODIPine (NORVASC) 10 mg tablet Take 1 tablet (10 mg total) by mouth daily 30 tablet 1 01/21/2022 Active aspirin 81 mg enteric coated tablet Take 1 tablet (81 mg total) by mouth daily 30 tablet 11 03/17/2023 Active oxyCODONE-aceta minophen (PERCOCET) 5-325 mg per tabletIndicatio ns:Pain Take 1 tablet by mouth every 8 (eight) hours as needed for pain 90 tablet 09/11/2024 Active oxyCODONE-aceta minophen (PERCOCET) 5-325 mg per tabletIndicatio ns:Pain Take 1 tablet by mouth every 8 (eight) hours as needed for pain 90 tablet 10/11/2024 5 Active Active Problems Problem Noted Date Diagnosed Date T12 compression fracture 04/18/2023 History of AAA (abdominal aortic aneurysm) repai r EVAR 04/05/2023 Visual changes 03/17/2023 TIA (transient ischemic attack) 03/17/2023 Lightheadedness 07/04/2022 Coronary artery disease invo lving [place] coronary artery of [place] heart without angina pectoris 03/21/2022 Assessment & Plan (01/20/2024 6:01 PM CDT): Patient underwent catheterization during EVAR and was found to have a single- vessel high-grade left PDA stenosis. Remains free of angina so continue medical therapy - continue aspirin 81 daily, Lipitor 40 Assessment & Plan (01/24/2023 9:03 AM CDT): Patient underwent catheterization during EVAR and was found to have a single- vessel high-grade left PDA stenosis. Remains free of angina so continue medical therapy - continue aspirin 81 daily, Lipitor 40 Assessment & Plan (2022 8:48 PM CDT): Patient underwent catheterization during EVAR recently and was found to have a single-vessel high-grade left PDA stenosis. He has no anginal symptoms and therefore no indication for revascularization. We discussed the need for long-term monitoring for development of anginal symptoms and for risk factor modification. If he develops symptoms GI is feasible for this lesion however if he remains asymptomatic we will pursue medical therapy - continue aspirin 81 daily, Lipitor 40 Aftercare following surgery of the circulatory s ystem 03/02/2022 AAA (abdominal aortic aneurysm) without rupture 01/18/2022 Abdominal aortic aneurysm (AAA) without rupture 01/11/2022 Assessment & Plan (01/24/2023 9:02 AM CDT): Status post endograft by Dr. Arevalo Assessment & Plan (01/18/2022 8:46 AM CDT): Incidental finding on abdominal ultrasound. Will follow-up with CT angiogram abdomen and pelvis for more complete evaluation and possible surgical planning. Patient to follow-up in 1-2 weeks once that study is performed. Polycythemia vera 12/06/2021 Assessment & Plan (01/18/2022 8:46 AM CDT): Currently stable. Continue medical management per Hematology. Shortness of breath 10/12/2021 Erythrocytosis 10/06/2021 Right foot pain 10/04/2021 Systolic murmur 09/28/2021 Myalgia 06/15/2020 Chronic right shoulder pain 01/20/2020 Nontraumatic complete tear of right rotator cuff 10/17/2019 Right hip pain 05/09/2018 Primary osteoarthritis of right hip 05/09/2018 Osteoarthritis of multiple joints 03/19/2018 Long-term current use of opiate analgesic 2017 Radiculopathy, lumbosacral region 11/19/2017 Lumbosacral spondylosis without myelopathy 11/19 Spinal stenosis of lumbar re gion without neurogenic claudication 11/19/2017 Assessment & Plan (01/18/2022 8:45 AM CDT): Chronic condition with low back pain and radiculopathy lower extremities. Continue current management. Pain in joint involving multiple sites 8 Other obesity due to excess calories 11/19/2017 Chronic pain of both knees 11/19/2017 Bilateral primary osteoarthritis of knee 018 Cardiovascular symptoms 09/28/2016 Hypothyroidism 09/28/2016 Primary hypertension 09/28/2016 Assessment & Plan (01/21/2024 10:36 AM CDT): Remains well controlled, continue amlodipine 10 and lisinopril 20 Assessment & Plan (01/24/2023 9:02 AM CDT): Remains well controlled, continue amlodipine 10 and lisinopril 40 Assessment & Plan (2022 8:48 PM CDT): Very well controlled, continue amlodipine 10 and lisinopril 40 Non- nausea and vomiting Immunizations Immunization Administration Dates Next Due Influenza, Quadrivalent, Hig h Dose, Preservative Free, Intrr 09/26/2021,06/03/2020 Influenza, Quadrivalent, Spl it, Preservative Free, Intramuscular 05/19/2019 Influenza, Unspecified 05/20/2015,2012,06/16/2012,05/19 Pfizer SARS-CoV-2 Monovalent Vaccination (12+ Yrs) PURPLE 03/28/2021,03/07/2021 Pneumococcal Conjugate PCV 13 09/26/2021 Pneumococcal, Unspecified 05/20/2014 ZOSTER LIVE 06/16/2012 Social History Tobacco Use Types Packs/Day Years Used Date Smoking Tobacco: Former Cigarettes Q uit: 1998 Smokeless Tobacco: Never Tobacco Cessation:Counseling Given: Not Answered Alcohol Use Standard Drinks/Week Comments Yes 0 (1 standard drink = 0.6 oz pur e alcohol) very rarely Social Connection and Isolat ion Panel [NHANES] Answer Date Recorded In a typical week, how many times do you talk on the phone with family, friends, or neighbors? More than three times a week 01/20/2022 How often do you get togethe r with friends or relatives? More than three times a week 01/20/2022 Attends Church Services Not on file 01/20 Active Member of Clubs or Organizations Not on f ile 01/20/2022 Attends Club or Organization Meetings Not on summer e 01/20/2022 Are you , , di vorced, , never , or living with a partner? 01/20/2022 AUDIT-C Answer Date Recorded Q1: How often do you have a drink containing alcohol? Never 01/19/2022 Q2: How many drinks containi ng alcohol do you have on a typical day when you are drinking? Patient does not drink Q3: How often do you have si x or more drinks on one occasion? Never 01/19/2022 Overall Financial Resource Strain (CARDIA) Answe r Date Recorded How hard is it for you to pa y for the very basics like food, housing, medical care, and heating? Not hard at all 01/20/2022 Hunger Vital Sign Answer Date Recorded Within the past 12 months, y ou worried that your food would run out before you got the money to buy more. Never true 01/21/20 22 Within the past 12 months, t he food you bought just didn't last and you didn't have money to get more. Never true 01/20/2022 PRAPARE - Transportation Answer Date Re corded In the past 12 months, has l ack of transportation kept you from medical appointments or from getting medications? No 01/04 In the past 12 months, has l ack of transportation kept you from meetings, work, or from getting things needed for daily living? No 01/20/2022 Personal Safety Answer Date Recorded Have you ever been in or are you currently in a harmful physical or emotional relationship or is someone making you feel afraid or unsafe? Denies 03/17/2023 Sex and Gender Information Value Date Recorded Sex Assigned at Not on file Legal Sex Male 12:08 PM MANAGER CONTACT Gender Identity Not on file Sexual Orientation Not on file Last Filed Vital Signs Vital Sign Reading Time Taken Comments Blood Pressure 141/80 09/08/2024 10:26 AM MANAGER CONTACT Pulse 65 09/08/2024 10:26 AM MANAGER CONTACT Temperature 36.6 C (97.9 F) 03/17/2023 11:19 AM CDT Respiratory Rate 18 09/08/2024 10:26 AM MANAGER CONTACT Oxygen Saturation 98% 09/08/2024 10:26 AM MANAGER CONTACT Inhaled Oxygen Concentration - - Weight 117.5 kg (259 lb) 01/21/2024 10:16 AM CDT Height 175.3 cm (5' 9 ) 01/21/2024 10:16 AM CDT Body Mass Index 38.25 01/21/2024 10:16 AM CDT Plan of Treatment Not on file Medical Devices Implanted Type Area Grants Manager Device Identifier Shelf Expiration Date Model / Serial / Lot [employer] Excluder 14.5mm 36mm 14cm 6.5cm Conformable Active Control Trunk [id number] - [id number] - [id number] Implanted:Qty: 1 on 01/19/2022 by Shahbaz Arevalo MD at [facility] Graft N/A: Abdominal Aorta [employer] [id number] 10/01/2024 [id number] / [employer] Marion Excluder 14.5mm 12cm Contralateral Leg Graft Endovascular [id number] - [id number] - [id number] Implanted:Qty: 1 on 01/19/2022 by Shahbaz Arevalo MD at [facility] Graft Left: Common Iliac Artery [employer] [id number] 09/26/2024 [id number] / [employer] [id number] Marion Excluder 14.5mm 12-13.5mm 7cm Power Reactor Supervisor Iliac Artery Graft - [id number] - [id number] Implanted:Qty: 1 on 01/19/2022 by Shahbaz Arevalo MD at [facility] Graft Right: Common Iliac Artery [employer] [id number] 10/02/2024 [id number] / Sol[employer] Vascular Device Clsr Perclose Prostyle Sut-Mediatd Closure-Repair Sys [id number] - [id number] - [id number] Implanted:Qty: 1 on 01/19/2022 by Shahbaz Arevalo MD at [facility] Vascular Closure Device Left: Femoral [employer] V[employer] 12/04/2023 [id number] / [id number] / [id number] Procedures Procedure Name Priority Date/Time Associated Diagnosis Comments CTA ABDOMEN PELVIS W WO CONTRAST Schedule Routine, Read Routine (OP Routine) 04/05/2023 12:03 PM CDT Status post endovascular aneurysm repair (EVAR) from Last 3 Months or Most Recently Relevant to Health Maintenance Results * CTA Abdomen Pelvis W WO Contrast (04/05/2023 12:03 PM CDT) Anatomical Region Laterality Modality Body N/A Computed Tomogra phy 04/05/2023 1:34 PM CDT Impressions 04/06/2023 1:13 PM CDT IMPRESSION: 1. 60 mm x 54 mm infrarenal abdominal aortic aneurysm with stent graft in place. There has been no interval change in the size of the aneurysm since the prior examination. . 2. No evidence of stent migration. No evidence of endoleak. Dictated by: Ru Isaacs MD The radiology attending physician has personally reviewed this study, and had reviewed and/or edited this written report and agrees with it. Electronically signed by: Boni Gonzalez M.D. Narrative 04/06/2023 1:13 PM CDT EXAMINATION: CT ANGIOGRAPHY OF THE ABDOMEN AND PELVIS WITH AND WITHOUT CONTRAST HISTORY: Abdominal aortic aneurysm status post endovascular graft placement. TECHNIQUE: CT angiography of the abdomen and pelvis was performed prior to and following the uneventful intravenous administration of 118 ml Optiray-350 using the post-endoluminal stent graft protocol. Vascular 3D images were generated on a dedicated workstation and also reviewed. COMPARISON: CT abdomen 03/02/2022 FINDINGS: VASCULAR FINDINGS: There is an infrarenal abdominal aortic aneurysm with an lijfn-[id number]-ggjzk stent graft in place. The proximal attachment site is caudal to the origins of the bilateral renal arteries, and the distal attachment sites are in the bilateral common iliac arteries. There has been no migration of the graft since the last exam. There is no perigraft flow to suggest an endoleak. No visceral stents are present. AAA volume (lowest renal artery to aortic bifurcation): Not available at time of dictation. See separate 3-D images for more information. Mild atherosclerosis. The maximum diameter of the aneurysm is 60 mm AP x 54 mm klixt-dh-[id number]. This is stable since the prior exam, given changes in technique. The maximum diameter of the aortobiiliac graft is 38 mm AP x 39 mm yodma-zw-uqty. This is stable since the prior exam. NON-VASCULAR FINDINGS: CHEST: LUNGS / AIRWAYS / PLEURA: No suspicious pulmonary nodule. HEART / VESSELS: No significant abnormality. MEDIASTINUM / ESOPHAGUS: Small hiatal hernia CHEST WALL: No significant abnormality. ABDOMEN and PELVIS: LIVER: No suspicious liver lesion. BILIARY TRACT: Normal. GALLBLADDER: Cholecystectomy. PANCREAS: Normal. SPLEEN: Normal. ADRENALS: Normal. KIDNEYS: Nonobstructive bilateral nephrolithiasis. Left renal cyst. No suspicious renal lesion. No hydronephrosis. LYMPH NODES: None enlarged. STOMACH / SMALL BOWEL: Postsurgical changes of sleeve gastrectomy. COLON / APPENDIX: Moderate sigmoid diverticulosis. PERITONEUM / MESENTERY: Normal. RETROPERITONEUM: Normal. OTHER VESSELS: No significant abnormality. URINARY BLADDER: Normal. REPRODUCTIVE ORGANS: Prostatectomy changes. BODY WALL: Ventral hernia repair changes with persistent small rectus diastases measuring up to 8 mm on series 5 image 85. MUSCULOSKELETAL: Spondylosis of the spine. Procedure Note Boni Gonzalez MD - 04/06/2023 EXAMINATION: CT ANGIOGRAPHY OF THE ABDOMEN AND PELVIS WITH AND WITHOUT CONTRAST HISTORY: Abdominal aortic aneurysm status post endovascular graft placement. TECHNIQUE: CT angiography of the abdomen and pelvis was performed prior to and following the uneventful intravenous administration of 118 ml Optiray-350 using the post-endoluminal stent graft protocol. Vascular 3D images were generated on a dedicated workstation and also reviewed. COMPARISON: CT abdomen 03/02/2022 FINDINGS: VASCULAR FINDINGS: There is an infrarenal abdominal aortic aneurysm with an [id number]-tt-[id number] stent graft in place. The proximal attachment site is caudal to the origins of the bilateral renal arteries, and the distal attachment sites are in the bilateral common iliac arteries. There has been no migration of the graft since the last exam. There is no perigraft flow to suggest an endoleak. No visceral stents are present. AAA volume (lowest renal artery to aortic bifurcation): Not available at time of dictation. See separate 3-D images for more information. Mild atherosclerosis. The maximum diameter of the aneurysm is 60 mm AP x 54 mm atdzc-ho-dbyg. This is stable since the prior exam, given changes in technique. The maximum diameter of the aortobiiliac graft is 38 mm AP x 39 mm cfddt-xr-erjy. This is stable since the prior exam. NON-VASCULAR FINDINGS: CHEST: LUNGS / AIRWAYS / PLEURA: No suspicious pulmonary nodule. HEART / VESSELS: No significant abnormality. MEDIASTINUM / ESOPHAGUS: Small hiatal hernia CHEST WALL: No significant abnormality. ABDOMEN and PELVIS: LIVER: No suspicious liver lesion. BILIARY TRACT: Normal. GALLBLADDER: Cholecystectomy. PANCREAS: Normal. SPLEEN: Normal. ADRENALS: Normal. KIDNEYS: Nonobstructive bilateral nephrolithiasis. Left renal cyst. No suspicious renal lesion. No hydronephrosis. LYMPH NODES: None enlarged. STOMACH / SMALL BOWEL: Postsurgical changes of sleeve gastrectomy. COLON / APPENDIX: Moderate sigmoid diverticulosis. PERITONEUM / MESENTERY: Normal. RETROPERITONEUM: Normal. OTHER VESSELS: No significant abnormality. URINARY BLADDER: Normal. REPRODUCTIVE ORGANS: Prostatectomy changes. BODY WALL: Ventral hernia repair changes with persistent small rectus diastases measuring up to 8 mm on series 5 image 85. MUSCULOSKELETAL: Spondylosis of the spine. IMPRESSION: IMPRESSION: 1. 60 mm x 54 mm infrarenal abdominal aortic aneurysm with stent graft in place. There has been no interval change in the size of the aneurysm since the prior examination. . 2. No evidence of stent migration. No evidence of endoleak. Dictated by: Ru Isaacs MD The radiology attending physician has personally reviewed this study, and had reviewed and/or edited this written report and agrees with it. Electronically signed by: Boni Gonzalez M.D. Monae Thurman NP IMG CT PROCEDURES Final R esult from Last 3 Months or Most Recently Relevant to Health Maintenance Insurance MEDICARE SOLUTIONS MEDICARE SOLUTIONS Member Subscriber Plan / Payer ( fective 2022-Present) Name:Huy Morocho Relation to Subscriber:Self Name:Huy Morocho Payer ID:[id number] (NAIC) Type:[facility] MEDICARE Address: [place] [id number] MEDICARE SOLUTIONS MEDICARE SOLUTIONS Advance Directives For more information, please contact: [phone] * Full Code (Latest Code Status on File) Date Activated Date Inactivated Comments 03/17/2023 1:26 AM 03/17/2023 7:08 PM * Full Code Date Activated Date Inactivated Comments 01/18/2022 1:43 PM 01/21/2022 2:55 PM * Full Code Date Activated Date Inactivated Comments 01/17/2022 10:14 PM 01/18/2022 12:47 PM Care Teams Wrecking Supervisor Relationship Specialty Start Date End Date Gama Jensen MD [address] [facility] [address] [place] [address] PCP - General Internal Medicine 10/26/21 Edis Murray Jr., MD [address] [facility] [address] [place] [address] Medical Oncologist/Staffing Mgr Medical Oncology 05/24/22 [place] [address] [facility] [address] [place] [address] Nurse Practitioner Pain Management 06/10/24
--- OUTSIDE RECORDS SUMMARY | 2024-10-21 16:24 | XMS_ITS | Clinical Summary ---
Author Organization [facility] Address [address] [place] [address] Care Team Providers Care Percussion Instrument Repairer Name Role Phone Parish Westfall MD Primary Care Provider [phone] Allergies No known active allergies Medications albuterol HFA 90 mcg inhaler 10/16/19 20 Active atorvastatin (LIPITOR) 40 mg tablet TAKE ONE-HALF TABLET BY MOUTH EVERY EVENING TO LOWER CHOLESTEROL 06/17/20 20 Active busPIRone (BUSPAR) 15 mg Tablet Take 15 mg by mouth. Active cyanocobalamin (VITAMIN B-12) 1,000 mcg/mL Solution INJECT 1000MCG/1ML INTRAMUSCULARLY EVERY MONTH FOR B12 SUPPLEMENTATION 09/22/19 20 Active erythromycin (ILOTYCIN) 5 mg/gram (0.5 %) ointment APPLY 1/2 INCH TO AFFECTED EYE(S) TWICE A DAY. 08/02/20 20 Active HYDROcodone-ac etaminophen (NORCO) 5-325 mg tablet TAKE 1 TABLET BY MOUTH EVERY 8 HOURS NEEDED FOR PAIN 09/13/19 21 Active levothyroxine (SYNTHROID) 175 mcg tablet TAKE ONE TABLET BY MOUTH ONCE A DAY FOR THYROID. TAKE 30 MINUTES BEFORE FOOD. TAKE SEPARATELY FROM ALL OTHER MEDICATIONS. 07/12/20 20 Active lisinopriL (PRINIVIL) 40 mg tablet TAKE ONE-HALF TABLET BY MOUTH ONCE A DAY FOR HEART OR BLOOD PRESSURE 01/06/20 20 Active naloxone (NARCAN) 4 mg/spray [place], Non-Aerosol Administer 1 [place] in each nostril. 09/22/19 20 Active omeprazole (PriLOSEC) 20 mg Capsule, Delayed Release(E.C.) TAKE ONE CAPSULE BY MOUTH EVERY MORNING BEFORE A MEAL TO LOWER STOMACH ACID. TAKE 30 MINUTES PRIOR TO FOOD. 09/24/19 21 Active sertraline (ZOLOFT) 100 mg tablet TAKE ONE TABLET BY MOUTH EVERY MORNING FOR MOOD 04/19/20 20 Active Tadalafil 10 mg tablet TAKE 1 TABLET BY MOUTH ONCE DAILY 30 MINUTES BEFORE SEXUAL ACTIVITY MAX 1 PER DAY 09/24/19 21 Active traZODone (DESYREL) 100 mg tablet TAKE ONE TABLET BY MOUTH AT BEDTIME FOR MOOD OR SLEEP. 09/24/19 20 Active Active Problems Problem Noted Date Diagnosed Date Erythrocytosis 10/06/2021 Family History Medical History Relation Name Comments Heart Disease Daughter 1 Cancer Mother Ovarian Cancer Sister 1 Relation Name Status Comments Daughter 1 Alive Daughter 2 Alive Father Mother Sister 1 Sister 2 Alive Sister 3 Alive Son Alive Social History Tobacco Use Types Packs/Day Years Used Date Smoking Tobacco: Former Cigarettes Smokeless Tobacco: Never Comments:over 20 yrs ago Alcohol Use Standard Drinks/Week Comments Not Currently 0 (1 standard drink = 0.6 oz pur e alcohol) Sex and Gender Information Value Date Recorded Sex Assigned at Not on file Legal Sex Male 11:55 AM CDT Gender Identity Not on file Sexual Orientation Not on file Last Filed Vital Signs Vital Sign Reading Time Taken Comments Blood Pressure 122/68 11/10/2021 11:26 AM CDT Pulse 36 11/10/2021 11:26 AM CDT Temperature 35.9 C (96.6 F) 11/10/2021 11:26 AM CDT Respiratory Rate - - Oxygen Saturation 98% 11/10/2021 11: 26 AM CDT Inhaled Oxygen Concentration - - Weight 116.2 kg (256 lb 3.2 oz) 022 11:26 AM CDT Height 172.7 cm (5' 8 ) 11/10/2021 11:2 6 AM CDT Body Mass Index 38.96 11/10/2021 11:26 AM CDT Plan of Treatment Health Maintenance Due Date Last Done Comments ZOSTER VACCINE (2 of 3) 08/11/2012 06/16/2012, 02/09 RSV VACCINE (60+ or ) (1 - 1-dose 75+ series) 2021 DTAP/TDAP/TD VACCINES (2 - T d or Tdap) 10/04/2022 10/04/2012 INFLUENZA VACCINE (#1) 2024 2, 06/03/2020, 05/19/2019, Additional history exists PNEUMOCOCCAL VACCINE 50+ YEARS Completed 0 09/26/2021, 08/18/2015, 11/16/2014, Additional history exists Insurance PPO [facility] Care Teams Percussion Instrument Repairer Relationship Specialty Start Date End Date Parish Westfall MD [address] [place] [address] PCP - General Internal Medicine 04/08/20
--- OUTSIDE RECORDS SUMMARY | 2024-10-21 16:24 | XMS_ITS | Clinical Summary ---
Author Organization [facility] Address [address] [place] [address] Care Team Providers Care Tablet Coater Name Role Phone Gama Jensen MD Primary Care Provide r Trevor Lacy MD, Edis Unavailable [phone] Veto Barboza NP Unavailable [phone] Allergies No known active allergies Medications levothyroxine [...] as needed for pain 90 tablet 10/11/2024 Active Active Problems Problem Noted Date Diagnosed Date T12 compression fracture 04/18/2023 History of AAA (abdominal aortic aneurysm) repai r EVAR 04/05/2023 Visual changes 03/17/2023 TIA (transient ischemic attack) 03/17/2023 Lightheadedness 07/04/2022 Coronary artery disease invo lving [place] coronary artery of [place] heart without angina pectoris 03/21/2022 Assessment & [...] and lisinopril 40 Non- nausea and vomiting Encounters Date Type Department Care Team Description 09/08/2024 9:46 AM CAREER SERVICES MANAGER - 09/08/2024 11:59 PM CAREER SERVICES MANAGER Hospital Encounter [facility] [address] [place] [address] Veto Barboza NP Radiculopathy, lumbosacral region (Primary Dx); Spinal stenosis of lumbar region without neurogenic claudication Discharge Disposition: Discharge to home or self care from Last 3 Months Immunizations Immunization Administration Dates Next Due Influenza, Quadrivalent, Hig h Dose, Preservative Free, Intrr 09/26/2021,06/03/2020 Influenza, Quadrivalent, Spl it, Preservative Free, Intramuscular 05/19/2019 Influenza, Unspecified 05/20/2015,2012,06/16/2012,05/19 Pfizer SARS-CoV-2 Monovalent Vaccination (12+ Yrs) PURPLE 03/28/2021,03/07/2021 Pneumococcal Conjugate PCV 13 09/26/2021 Pneumococcal, Unspecified 05/20/2014 ZOSTER LIVE 06/16/2012 Surgical History Surgery Date Site/Laterality Comments TOTAL KNEE ARTHROPLASTY PROSTATECTOMY N/A APPENDECTOMY CHOLECYSTECTOMY GASTRIC BYPASS WRIST SURGERY Right FOOT FRACTURE SURGERY Right ENDOSCOPIC AORTIC REPAIR 01/19/2022 Medical History Medical History Date Comments Hypertension Low back pain GERD (gastroesophageal reflux disease) Arthritis COPD (chronic obstructive pulmonary disease) (HC C) Sleep apnea Thyroid disease Polycythemia vera (HCC) 12/06/2021 Hypercholesteremia Prostate cancer (HCC) Family History Medical History Relation Name Comments COPD Father Arthritis Mother Cancer Mother Ovarian cancer Sister Relation Name Status Comments Father Mother Sister Social History Tobacco Use Types Packs/Day Years [...] than three times a week 01/20/2022 Attends [employer] Not on file 01/20 Active Member [...] on file Legal Sex Male 12:08 PM CAREER SERVICES MANAGER Gender Identity Not on file Sexual Orientation Not on file Obstetrics History Last Filed Vital Signs Vital Sign Reading Time Taken Comments Blood Pressure 141/80 09/08/2024 10:26 AM CAREER SERVICES MANAGER Pulse 65 09/08/2024 10:26 AM CAREER SERVICES MANAGER Temperature 36.6 C (97.9 F) 03/17/2023 11:19 AM CDT Respiratory Rate 18 09/08/2024 10:26 AM CAREER SERVICES MANAGER Oxygen Saturation 98% 09/08/2024 10:26 AM CAREER SERVICES MANAGER Inhaled Oxygen Concentration - - Weight 117.5 kg (259 lb) 01/21/2024 10:16 AM CDT Height 175.3 cm (5' 9 ) 01/21/2024 10:16 AM CDT Body Mass Index 38.25 01/21/2024 10:16 AM CDT Plan of Treatment Health Maintenance Due Date Last Done Comments Hepatitis C Screening 1945 Hepatitis B Screening 1964 Well Visit 65+ 2011 Depression Screening 05/09/2019 05/09/2018, 05/09/20 18 Covid-19 Vaccine (3 - 2023-2 5 season) 2024 03/28/2021, 03/07/2021 Influenza Vaccine (#1) 2024 , 07/06/2022, 09/26/2021, Additional history exists Fall Risk Assessment 09/08/2025 09/08/2024 DTaP/Tdap/Td Vaccine (4 - Td or Tdap) 11/06/2032 11/06/2022, 05/29/2022, 10/04/2012 Pneumococcal vaccine 65+ Completed 022, 02/24/2021, 08/18/2015, Additional history exists Zoster Vaccine Completed 11/06/2022, 07/07, 06/16/2012, Additional history exists Abdominal Aortic Aneurysm (A AA) Screen Completed 04/05/2023, 01/23/2023, 03/02/2022, Additional history exists Medical Devices Implanted Type Area Clearing Supervisor Device Identifier Shelf Expiration Date Model / Serial / Lot [employer] Excluder 14.5mm 36mm 14cm 6.5cm Conformable Active Control Trunk [id number] - [id number] - [id number] Implanted:Qty: 1 on 01/19/2022 by Shahbaz Arevalo MD at [facility] Graft N/A: Abdominal Aorta Wl [employer] [id number] 10/01/2024 [id number] / Wl [employer] Solon Excluder 14.5mm 12cm Contralateral Leg Graft Endovascular [id number] - [id number] - [id number] Implanted:Qty: 1 on 01/19/2022 by Shahbaz Arevalo MD at [facility] Graft Left: Common Iliac Artery Wl [employer] [id number] 09/26/2024 [id number] / Wl [employer] [id number] Solon Excluder 14.5mm 12-13.5mm 7cm Watcher [place] [employer] Iliac Artery Graft - [id number] - [id number] Implanted:Qty: 1 on 01/19/2022 by Shahbaz Arevalo MD at [facility] Graft Right: Common Iliac Artery Wl [employer] [id number] 10/02/2024 [id number] / [employer] V[employer] Device Clsr Perclose Prostyle Sut-Mediatd Closure-Repair Sys [id number] - [id number] - [id number] Implanted:Qty: 1 on 01/19/2022 by Shahbaz Arevalo MD at [facility] Vascular Closure Device Left: Femoral [employer] 12/04/2023 [id number] Procedures Procedure Name Priority Date/Time Associated Diagnosis [...] an infrarenal abdominal aortic aneurysm with an qbvqk-uq-xqkra stent graft in place. The proximal attachment [...] is 60 mm AP x 54 mm suwex-gf-hkco. This is stable since the prior exam, given changes in technique. The maximum diameter of the aortobiiliac graft is 38 mm AP x 39 mm lsxlu-mu-zdvb. This is stable since the prior exam. [...] an infrarenal abdominal aortic aneurysm with an obcit-qr-rqzvu stent graft in place. The proximal attachment [...] is 60 mm AP x 54 mm jykbg-lu-oywf. This is stable since the prior exam, given changes in technique. The maximum diameter of the aortobiiliac graft is 38 mm AP x 39 mm utfft-at-vthu. This is stable since the prior exam. [...] Relevant to Health Maintenance Insurance [facility] MED[facility] Address: [address] [address] [employer] [facility] Address: [place] [address] [employer] [facility] Address: [address] [place] [address] Advance Directives For more information, please contact: [phone] * Full Code (Latest Code Status on File) Date Activated Date Inactivated Comments 03/17/2023 1:26 AM 03/17/2023 7:08 PM * Full Code Date Activated Date Inactivated Comments 01/18/2022 1:43 PM 01/21/2022 2:55 PM * Full Code Date Activated Date Inactivated Comments 01/17/2022 10:14 PM 01/18/2022 12:47 PM Care Teams Tablet Coater Relationship Specialty Start Date End Date Gama Jensen MD [address] [address] PCP - General Internal Medicine 10/26/21 Edis Murray Jr., MD [address] [place] [address] Medical Oncologist/Urologist Md Medical Oncology 05/24/22 [place] [address] [address] [facility] [address] [place] [address] Nurse Practitioner Pain Management 06/10/24
--- OUTSIDE RECORDS SUMMARY | 2024-10-21 16:24 | XMS_ITS | Encounter Summary ---
Author Organization [facility] Address [address] [facility] [address] [place] [place] [address] Care Team Providers Care Burling And Joining Supervisor Name Role Phone Unavailable Primary Care Provider Unavailabl e Encounter Details Date Type Department Care Team (Late st Contact Info) Description 02/28/2022 Lab Requisition [facility] [address] [place] [id number] Jeromy Shearer MD [address] [place] [address] Social History Tobacco Use Types Packs/Day Years Used Date Smoking Tobacco: Never Assessed Sex and Gender Information Value Date Recorded Sex Assigned at Not on file Gender Identity Not on file Sexual Orientation Not on file documented as of this encounter Plan of Treatment Not on file documented as of this encounter Procedures Procedure Name Priority Date/Time Associated Diagnosis Comments DERMATOPATHOLOGY Routine 02/24/2022 12:0 0 AM CDT documented in this encounter Results * DERMATOPATHOLOGY (02/24/2022 12:00 AM CDT) Case Report Dermatopathology Report Case: [id number] Authorizing Provider: Jeromy Shearer MD Collected: 02/24/2022 12:00 AM Ordering Location: [facility] Received: 02/28/2022 08:38 AM Pathologist: Zora Castellon MD Specimen: Skin, nasal tip 2 3:54 PM CDT DERMATOPATHOLOGY LABORATORY Final Diagnosis Specimen A. SKIN, nasal tip: HYPERPLASTIC (HYPERTROPHIC) ACTINIC KERATOSIS, ERODED (L57.0) 2 3:54 PM CDT DERMATOPATHOLOGY LABORATORY Clinical History BCCA vs SCCA vs other. Path#[id number] 2 3:54 PM CDT DERMATOPATHOLOGY LABORATORY Gross Description Specimen A: Received is one formalin filled container labeled with the patient's name and designated nasal tip. The specimen consists of a shave biopsy measuring 4x4x1 mm. Jar 0. 2 3:54 PM CDT DERMATOPATHOLOGY LABORATORY Microscopic Description Specimen A. SKIN, nasal tip: There is hyperkeratosis alternating with parakeratosis. There is epidermal hyperplasia with disorderly maturation of keratinocytes with nuclear pleomorphism confined to the lower half of the epidermis. The epidermis is eroded. 2 3:54 PM CDT DERMATOPATHOLOGY LABORATORY Disclaimer An external and internal positive and negative controls are appropriate for the histochemical, immunohistochemical and immunofluorescence stain(s) in this case (if any), except where stated explicitly. The performance characteristics of the stain(s) cited in this report were developed and its performance characteristic determined by the Dermatopathology Laboratory at [facility], directed by Dr. Smita Hatfield. These tests need not be, and therefore are not, approved by the [place] Food and Drug Administration. The tests are used for clinical purposes. Billing Codes Specimen Charges Stain Charges 17993 1 2 3:54 PM CDT DERMATOPATHOLOGY LABORATORY Embedded Images 2 3:54 PM CDT DERMATOPATHOLOGY LABORATORY Pathology/Cytolog y TISSUE SPECIMEN FROM SKIN / Unknown 02/24/2022 02/28/2022 8:38 AM CDT Jeromy Shearer MD LAB - PATHOLOGY/CYTO LOGY ORDERABLES DERMATOPATHOLOGY LABORATORY [facility] - Department of Dermatology [address] [phone] documented in this encounter Visit Diagnoses Not on filedocumented in this encounter
== END 2024-10-21 14:34 | disposition home or self-care (01) ==
PROVIDERS: PCP Internal Medicine; Visit Provider Internal Medicine
DX: E03.9 Hypothyroidism, unspecified (principal); R05.9 Cough, unspecified
CPT/HCPCS: 71250; 76536